=== PATIENT | female | born 1955 | race Caucasian/White ===

== ENCOUNTER → 2019-07-23 17:21 | Outpatient (CLI) | payer MEDICARE, SELFPAY ==
[2019-07-23 19:08] LABS: Amphetamine/Metha Screen,Urine Negative ng/mL (<1000); Barbiturates Screen,Urine Negative ng/mL (<200); Benzodiazepines Screen,Urine Negative ng/mL (<200); Cannabinoid Screen,Urine Negative ng/mL (<50); Cocaine Screen,Urine Negative ng/mL (<300); Methadone Screen,Urine Negative ng/mL (<300); Opiate Screen,Urine Negative ng/mL (<300); Phencyclidine Screen,Urine Negative ng/mL (<25)
[2019-07-30 19:36] LABS: Alprazolam Negative (Cutoff=100); Benzodiazepines Negative ng/mL (Cutoff=100); Clonazepam Negative (Cutoff=100); Flurazepam Negative (Cutoff=100); Lorazepam Negative (Cutoff=100); Midazolam Negative (Cutoff=100); Temazepam Negative (Cutoff=100); Triazolam Negative (Cutoff=100)
[2019-07-31 16:57] LABS: Opiates Negative (Cutoff=100)
== END ==
PROVIDERS: Visit Provider Emergency Medicine
DX: Z79.899 Other long term (current) drug therapy (principal)
CPT/HCPCS: 80305; 80346; 80361; 80365; G0480

== ENCOUNTER → 2019-08-20 17:02 | Outpatient (CLI) | payer MEDICARE, SELFPAY ==
[2019-08-20 21:38] LABS: Amphetamine/Metha Screen,Urine Negative ng/ml (<1000)
[2019-08-20 21:39] LABS: Barbiturates Screen,Urine Negative ng/ml (<200); Benzodiazepines Screen,Urine Negative ng/ml (<200)
[2019-08-20 21:40] LABS: Cannabinoid Screen,Urine Negative ng/ml (<50)
[2019-08-20 21:41] LABS: Cocaine Screen,Urine Negative ng/ml (<300); Methadone Screen,Urine Negative ng/ml (<300)
[2019-08-20 21:42] LABS: Opiate Screen,Urine Negative ng/ml (<300)
[2019-08-20 21:43] LABS: Phencyclidine Screen,Urine Negative ng/ml (<25)
[2019-08-28 10:28] LABS: Alprazolam Negative (Cutoff=100); Benzodiazepines Negative ng/mL (Cutoff=100); Clonazepam Negative (Cutoff=100); Flurazepam Negative (Cutoff=100); Lorazepam Negative (Cutoff=100); Midazolam Negative (Cutoff=100); Temazepam Negative (Cutoff=100); Triazolam Negative (Cutoff=100)
[2019-08-28 12:33] LABS: Opiates Negative (Cutoff=100)
== END ==
PROVIDERS: Visit Provider Emergency Medicine
DX: Z79.899 Other long term (current) drug therapy (principal)
CPT/HCPCS: 80305; 80346; 80361; 80365; G0480

== ENCOUNTER → 2019-11-03 14:15 | Outpatient (POV) | payer MEDICARE, SELFPAY ==
[2019-11-03 14:26] VITALS: BMI 25.3
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
== END ==
PROVIDERS: Visit Provider Clinical Nurse Specialist Family Health
DX: R10.2 Pelvic and perineal pain (principal); M79.606 Pain in leg, unspecified; Z79.899 Other long term (current) drug therapy; Z88.1 Allergy status to other antibiotic agents
CPT/HCPCS: 99202

== ENCOUNTER → 2019-11-27 17:22 | Outpatient (CLI) | payer MEDICARE, SELFPAY ==
[2019-11-27 17:52] LABS: Basophils # 0.1 K/mm3 (0-0.2); Basophils % 0.5 % (0.1-2.0); Eosinophils # 0.1 K/mm3 (0.0-0.4); Eosinophils % 0.8 % (0.1-12.0); Hematocrit 41.1 % (37.0-47.0); Hemoglobin 14.1 g/dL (12.2-16.2); Lymphocytes # 3.6 K/mm3 (0.7-4.5); Lymphocytes % 23.6 % (10-50); Mean Corpuscular HGB Conc 34.2 g/dL (31.8-35.4); Mean Corpuscular Hemoglobin 35.6 pg (27.0-31.2); Mean Platelet Volume 9.5 fl (7.4-10.4); Monocytes # 0.8 K/mm3 (0.1-1.0); Neutrophils # 10.6 K/mm3 (1.8-7.8); Neutrophils % 70.2 % (37.0-80.0); Platelet Count 459 K/mm3 (142-424); Red Blood Count 3.95 M/mm3 (4.20-5.40); Red Cell Distribution Width 13.6 % (11.5-17.5); White Blood Count 15.2 K/mm3 (4.8-10.8)
[2019-11-27 17:53] LABS: MANUAL DIFFERENTIAL MANUAL DIFFERENTIAL (MANUAL DIFF)
[2019-11-27 18:16] LABS: Alanine Aminotransferase 34 U/L (12-78); Albumin Level 4.6 g/dl (3.5-5.0); Albumin/Globulin Ratio 1.6 (1.1-1.8); Alkaline Phosphatase 134 U/L (38-126); Anion Gap 15.9 mEq/L (5-15); Aspartate Amino Transferase 48 U/L (14-36); Bilirubin,Total 0.3 mg/dl (0.2-1.3); Blood Urea Nitrogen 7 mg/dl (7-17); Calcium 9.9 mg/dl (8.4-10.2); Carbon Dioxide 22 mmol/L (22.0-30.0); Chloride 94 mmol/L (98-107); Estimated Glomerular Filt Rate 100 ml/min (>60); GFR (African American) 121 ML/MIN (>60); Globulin 2.9 g/dL (1.3-3.2); Glucose 83 mg/dl (74-100); Potassium 3.9 mmoL/L (3.5-5.1); Sodium 128 mmol/L (136-145); Total Protein,Serum 7.5 g/dl (6.3-8.2)
[2019-11-27 18:43] LABS: Anisocytosis 1+; Eosinophils % 2 % (0-3); Lymphocytes % 26 % (10-50); Macrocytosis 1+; Monocytes % 6 % (2-9); Neutrophils % 66 % (42-76); Platelet Estimate Slight Increase; Total Cells Counted 100
== END ==
PROVIDERS: Visit Provider Physician Assistant
DX: R19.7 Diarrhea, unspecified (principal)
CPT/HCPCS: 80053; 85007; 85025

== ENCOUNTER → 2019-12-15 17:13 | Outpatient (CLI) | payer MEDICARE, SELFPAY ==
[2019-12-15 17:38] LABS: Chloride 95 mmol/L (98-107); Sodium 129 mmol/L (136-145)
[2019-12-15 17:39] LABS: Potassium 4.8 mmoL/L (3.5-5.1)
[2019-12-15 17:42] LABS: Anion Gap 13.8 mEq/L (5-15); Blood Urea Nitrogen 8 mg/dl (7-17); Calcium 9.7 mg/dl (8.4-10.2); Carbon Dioxide 25 mmol/L (22.0-30.0); Estimated Glomerular Filt Rate 124 ml/min (>60); GFR (African American) 150 ML/MIN (>60); Glucose 97 mg/dl (74-100)
== END ==
PROVIDERS: Visit Provider Emergency Medicine
DX: I10 Essential (primary) hypertension (principal)
CPT/HCPCS: 80048

== ENCOUNTER → 2020-08-25 14:40 | Outpatient (CLI) | payer MEDICARE, SELFPAY ==
[2020-08-25 18:09] LABS: Amphetamine/Metha Screen,Urine Negative ng/ml (<1000)
[2020-08-25 18:10] LABS: Barbiturates Screen,Urine Negative ng/ml (<200); Benzodiazepines Screen,Urine Negative ng/ml (<200)
[2020-08-25 18:11] LABS: Cannabinoid Screen,Urine Negative ng/ml (<50)
[2020-08-25 18:12] LABS: Cocaine Screen,Urine Negative ng/ml (<300); Methadone Screen,Urine Negative ng/ml (<300)
[2020-08-25 18:13] LABS: Opiate Screen,Urine Positive ng/ml (<300)
[2020-08-25 18:14] LABS: Phencyclidine Screen,Urine Negative ng/ml (<25)
== END ==
PROVIDERS: Visit Provider Emergency Medicine
DX: Z79.899 Other long term (current) drug therapy (principal)
CPT/HCPCS: 80305

== ENCOUNTER → 2020-10-25 14:26 | Outpatient (CLI) | payer MEDICARE, SELFPAY ==
[2020-10-25 16:27] LABS: Amphetamine/Metha Screen,Urine Negative ng/ml (<1000); Benzodiazepines Screen,Urine Negative ng/ml (<200)
[2020-10-25 16:28] LABS: Barbiturates Screen,Urine Negative ng/ml (<200)
[2020-10-25 16:29] LABS: Cannabinoid Screen,Urine Negative ng/ml (<50); Methadone Screen,Urine Negative ng/ml (<300)
[2020-10-25 16:30] LABS: Cocaine Screen,Urine Negative ng/ml (<300)
[2020-10-25 16:31] LABS: Opiate Screen,Urine Negative ng/ml (<300)
[2020-10-25 16:32] LABS: Phencyclidine Screen,Urine Negative ng/ml (<25)
== END ==
PROVIDERS: Visit Provider Emergency Medicine
DX: Z79.899 Other long term (current) drug therapy (principal)
CPT/HCPCS: 80305

== ENCOUNTER → 2021-03-25 17:05 | Outpatient (CLI) | payer MEDICARE, SELFPAY ==
[2021-03-25 19:41] LABS: Amphetamine/Metha Screen,Urine Negative ng/ml (<1000); Barbiturates Screen,Urine Negative ng/ml (<200)
[2021-03-25 19:42] LABS: Benzodiazepines Screen,Urine Negative ng/ml (<200)
[2021-03-25 19:43] LABS: Cannabinoid Screen,Urine Negative ng/ml (<50)
[2021-03-25 19:44] LABS: Cocaine Screen,Urine Negative ng/ml (<300)
[2021-03-25 19:45] LABS: Methadone Screen,Urine Negative ng/ml (<300)
[2021-03-25 19:47] LABS: Opiate Screen,Urine Negative ng/ml (<300); Phencyclidine Screen,Urine Negative ng/ml (<25)
== END ==
PROVIDERS: Visit Provider Emergency Medicine
DX: Z79.899 Other long term (current) drug therapy (principal)
CPT/HCPCS: 80305

== ENCOUNTER → 2021-04-06 07:50 | Outpatient (CLI) | payer MEDICARE, SELFPAY | PROVIDERS: Visit Provider Nurse Practitioner Family | DX: G93.40 Encephalopathy, unspecified (principal); I10 Essential (primary) hypertension | CPT/HCPCS: 36415; 80053; 82607; 82746; 84443; 85025 ==

== ENCOUNTER → 2021-04-06 08:21 | Outpatient (CLI) | payer MEDICARE, SELFPAY ==
--- NOTE | 2021-04-06 08:21 | MR_ITS ---
PROCEDURE INFORMATION: Exam: MR Head Without and With Contrast Exam date and time: 04/06/2021 8:21 AM Age: 65 years old Clinical indication: Pain; Headache; Additional info: Memory loss, HX headaches, bone cancer. Memory loss, HX headaches, bone cancer. 14ml prohance. Unable to finish coronal post contrast, only some images are there for this series. TECHNIQUE: Imaging protocol: MR of the head without and with intravenous contrast. Contrast material: PROHANCE; Contrast volume: 14 ml; Contrast route: IV; COMPARISON: No relevant prior studies available. FINDINGS: Brain: The coronal postcontrast images are incomplete, limiting this evaluation. No abnormally enhancing intracranial mass is identified. No restricted diffusion within the brain to suggest an acute infarct. Encephalomalacia/gliosis involving the bilateral parietal lobes superiorly, consistent with old infarcts. Additional gliosis is seen within the posterosuperior frontal lobes bilaterally, as well as the left occipital cortex, likely representing chronic ischemic change. There are additional periventricular foci of FLAIR hyperintensity within the cerebral white matter. There is no mass effect or restricted diffusion associated with these foci. In a patient this age, this likely represents chronic small vessel ischemic disease. A few tiny chronic cerebellar infarcts are seen bilaterally. Cerebral ventricles: No ventriculomegaly. Bones/joints: Nonspecific heterogeneous signal intensity of the skull. Degenerative changes are visualized within the upper cervical spine. Moderate spinal canal stenosis is noted at C3-C4. Evaluation of the cervical spine is limited. Paranasal sinuses: An air-fluid level is visualized within the right maxillary sinus. Mucosal thickening/effusion within the left frontal sinus. Mastoid air cells: No mastoid effusion. Internal auditory canals: An anterior inferior cerebellar artery loop is seen within the right internal auditory canal. Orbital cavity: Bilateral orbital lens implants. Soft tissues: Unremarkable, as visualized. Nasopharynx: Small amount of fluid within the posterior nasopharynx. IMPRESSION: 1. No acute infarct. 2. Encephalomalacia/gliosis involving the bilateral parietal lobes superiorly, consistent with old infarcts. Additional gliosis is seen within the posterosuperior frontal lobes bilaterally, as well as the left occipital cortex, likely representing chronic ischemic change. 3. Mild additional white matter disease, likely representing chronic small vessel ischemic disease. 4. A few tiny chronic cerebellar infarcts are seen bilaterally. 5. Paranasal sinus disease. 6. Small amount of fluid within the posterior nasopharynx. 7. Degenerative changes are visualized within the upper cervical spine. Moderate spinal canal stenosis is noted at C3-C4. 8. Nonspecific heterogeneous signal intensity of the skull. In a patient with a history of bone cancer, a follow-up bone scan is suggested.
[2021-04-06 08:42] LABS: Basophils # 0.1 K/mm3 (0-0.2); Basophils % 0.5 % (0.1-2.0); Eosinophils # 0.3 K/mm3 (0.0-0.4); Eosinophils % 2.8 % (0.1-12.0); Hemoglobin 12.9 g/dL (12.2-16.2); Lymphocytes # 3.4 K/mm3 (0.7-4.5); Lymphocytes % 33.4 % (10-50); Mean Corpuscular Hemoglobin 35.8 pg (27.0-31.2); Mean Corpuscular Volume 108.6 fl (81-99); Mean Platelet Volume 8.2 fl (7.4-10.4); Monocytes # 0.5 K/mm3 (0.1-1.0); Monocytes % 5.2 % (1.7-9.3); Neutrophils % 58.1 % (37.0-80.0); Platelet Count 377 K/mm3 (142-424); Red Blood Count 3.59 M/mm3 (4.20-5.40); Red Cell Distribution Width 13.5 % (11.5-17.5); White Blood Count 10.3 K/mm3 (4.8-10.8)
[2021-04-06 09:05] LABS: Alanine Aminotransferase 16 U/L (12-78); Albumin Level 4.4 g/dl (3.5-5.0); Albumin/Globulin Ratio 1.6 (1.1-1.8); Alkaline Phosphatase 85 U/L (38-126); Anion Gap 9.6 mEq/L (5-15); Aspartate Amino Transferase 34 U/L (14-36); Bilirubin,Total 0.3 mg/dl (0.2-1.3); Blood Urea Nitrogen 8 mg/dl (7-17); Calcium 9.9 mg/dl (8.4-10.2); Carbon Dioxide 31 mmol/L (22.0-30.0); Chloride 97 mmol/L (98-107); Estimated Glomerular Filt Rate 123 ml/min (>60); GFR (African American) 149 ML/MIN (>60); Globulin 2.7 g/dL (1.3-3.2); Glucose 93 mg/dl (74-100); Potassium 4.6 mmoL/L (3.5-5.1); Sodium 133 mmol/L (136-145); Total Protein,Serum 7.1 g/dl (6.3-8.2)
[2021-04-06 09:37] LABS: Thyroid Stimulating Hormone 1.58 uIU/mL (0.465-4.68)
[2021-04-06 11:36] LABS: Folate 5.38 ng/mL; Vitamin B12 > 1000 pg/mL (239-931)
== END ==
PROVIDERS: PCP Emergency Medicine; Visit Provider Nurse Practitioner Family
DX: G93.40 Encephalopathy, unspecified (principal); R41.3 Other amnesia; Z85.830 Personal history of malignant neoplasm of bone
CPT/HCPCS: 36415; 70553; 80053; 82607; 82746; 84443; 85025; 95816; A9576

== ENCOUNTER → 2021-05-03 08:23 | Outpatient (CLI) | payer MEDICARE, SELFPAY ==
--- NOTE | 2021-05-03 08:24 | CA_ITS ---
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 Indications: eval for carotid stenosis, smoker, hx-TIA/CVA Risk Factors Smoking Doppler Spectral Velocity Analysis ECA (R) 189.30/21.40 cm/s ECA (L) 62.20/0.70 cm/s dICA (R) 94.10/31.00 cm/s dICA (L) 95.70/27.80 cm/s Loan (R) 79.10/23.50 cm/s Loan (L) 82.80/23.80 cm/s pICA (R) 85.50/22.50 cm/s pICA (L) 70.90/19.90 cm/s dCCA (R) 130.50/6.40 cm/s dCCA (L) 78.80/17.90 cm/s pCCA (R) 101.60/25.70 cm/s pCCA (L) 86.10/17.90 cm/s Vert (R) 66.30/19.20 cm/s Vert (L) 43.70/9.90 cm/s ICA/CCA 0.93 ICA/CCA 1.11 Findings 2d imaging displays extreme tortuosity of the Right carotid arteries. No hemodynamically significant stenosis of bilateral ICA stensis present. Duplex evaluation demonstrates antegrade flow of the bilateral Vertebral Arteries. Duplex evaluation demonstrates stenosis of the right proximal internal carotid artery in the range of 20-49% with PSV <140 cm/sec, EDV <100 cm/sec, and IC/CC Ratio <4.0. Duplex evaluation demonstrates stenosis of the left proximal internal carotid artery in the range of 20-49% with PSV <140 cm/sec, EDV <100 cm/sec, and IC/CC Ratio <4.0. Conclusion 2d imaging displays extreme tortuosity of the Right carotid arteries. No hemodynamically significant stenosis of bilateral ICA stensis present. Duplex evaluation demonstrates antegrade flow of the bilateral Vertebral Arteries. Duplex evaluation demonstrates stenosis of the right proximal internal carotid artery in the range of 20-49% with PSV <140 cm/sec, EDV <100 cm/sec, and IC/CC Ratio <4.0. Duplex evaluation demonstrates stenosis of the left proximal internal carotid artery in the range of 20-49% with PSV <140 cm/sec, EDV <100 cm/sec, and IC/CC Ratio <4.0. Electronically signed by : Lg Schulz MD 05/03/2021 18:23:50
--- NOTE | 2021-05-03 08:24 | CA_ITS ---
APPROVED REPORT EXAM: Comprehensive 2D, Doppler, and color-flow Echocardiogram Infrastructure Administrator: Alis Gaxiola, RT(R) Ht: 5 ft 6 in Wt: 146lbs BSA: 1.75 BP: 132/78 mmHg Indications: CVA, smoker, HTN, hx of bone cancer, TIA's 2D Dimensions LVOT 2.01 cm (M/F) 1.5-2.5 LA Volume 48.00 mL LA Volume Index 27.42 mL/m2 (M/F) 16-34 M-Mode Dimensions RVDd 2.46 cm (0.9-2.6) LA Diam 3.24 cm (1.9-4.0) LVDd 5.01 cm (3.5-5.7) Ao Diam 3.05 cm (2.0-3.7) LVDs 3.83 cm (3.5-5.7) IVSd 0.75 cm (0.6-1.1) PWd 0.93 cm (0.6-1.1) EF (Teich) 46.90% FS 23.60% EDV (Teich) 118.80 mL ESV (Teich) 63.10 mL LV Diastology E Decel Time 233.00 (160-240 msec) E/A Ratio 0.6 MED E' 6.00 (< 7 cm/sec) E'/MED E' Ratio 11.80 (>14) LAT E' 7.30 (<10 cm/sec) E/LAT E' Ratio 9.70 (>14) Mitral Valve MV E Max Jesús. 71.00 (40-130 cm/s) MV A Velocity 120.00 (40-130 cm/s) E/A Ratio 0.59 MV Decel. Time 233.00 (160-240 ms) MV PHT 68.00 ms Left Ventricle Left atrium is mildly enlarged, left ventricle is normal size, mild concentric left ventricular hypertrophy, visually estimated ejection fraction 55% with no regional wall motion abnormality, grade 1 diastolic dysfunction seen without tissue Doppler evidence of raise left atrial pressure. Right Ventricle Right atrium and right ventricle are normal size and contractility. Aortic Valve Aortic valve is minimally thickened and fibrosed, there is no aortic stenosis or aortic insufficiency. Mitral Valve Mitral valve is grossly normal, there is trace mitral regurgitation. Tricuspid Valve Tricuspid valve is grossly normal, there is trace tricuspid regurgitation. Tricuspid rotation jet velocity is inadequate for calculation of the right ventricular systolic pressure. Pulmonic Valve Pulmonic valve is poorly visualized. Great Vessels Aortic root is normal size. Inferior vena cava is not well visualized. Pericardium No significant pericardial effusion noted. Conclusion 1. Mildly enlarged left atrium, normal left ventricular size, mild concentric left ventricular hypertrophy, visually estimated ejection fraction 55% with no regional wall motion abnormality, grade 1 diastolic dysfunction seen without tissue Doppler evidence of raise left atrial pressure. 2. Trace mitral and tricuspid regurgitation. 3. No significant pericardial effusion noted. 4. Inferior vena cava is not well visualized. Electronically signed by : Morgan Gibson MD 05/03/2021 21:48:57
== END ==
PROVIDERS: PCP Emergency Medicine; Visit Provider Nurse Practitioner Family
DX: G93.40 Encephalopathy, unspecified (principal); I10 Essential (primary) hypertension; R90.89 Other abnormal findings on diagnostic imaging of central nervous system; Z86.73 Personal history of transient ischemic attack (TIA), and cerebral infarction without residual deficits; Z72.0 Tobacco use
CPT/HCPCS: 93306; 93880

== ENCOUNTER → 2021-05-12 09:07 | Outpatient (CLI) | payer MEDICARE, SELFPAY ==
--- NOTE | 2021-05-12 09:10 | NM_ITS ---
PROCEDURE: NM BONE SCAN WHOLE BODY CLINICAL INDICATION: ABN MRI, CURRENT SMOKER COMPARISON: CR CXR1 CHEST-PORTABLE from 06/23/2015 MR MR HEAD/BRAIN WO/W CON from 04/06/2021 FINDINGS: Dose: 244 mCi technetium MDP Skull has an unremarkable appearance. Focal increased activity in 4th rib anteriorly and in the right aspect the T5 vertebral body. There is diffuse increased activity at the L4 and region lumbar, bilateral SI joints and in the right ankle and proximal foot area. Diffuse increased activity is also present in the distal 1/2 of the left femur. Increased activity also noted in the mid lower cervical spine. IMPRESSION: Abnormal whole body bone scan with multiple areas of focal and diffuse increased activity as described above. These findings are nonspecific and should be correlated with patient's history and radiographs. Posttraumatic and/or arthritic changes could cause these findings. Has the patient had prior trauma to the left femur and right ankle and foot? One cannot exclude the possibility of metastatic disease. Posttraumatic changes/arthritic changes are also consideration. Radiographs of the right ribs, thoracic spine, lumbar spine to include the SI joints, left femur, and right ankle and foot suggested. Dictated by: Lg Schulz MD 05/21/2021 06:59 Lg Schulz MD in [place] 05/21/2021 06:59
== END ==
PROVIDERS: PCP Emergency Medicine; Visit Provider Internal Medicine Medical Oncology
DX: R51.9 Headache, unspecified (principal); R93.89 Abnormal findings on diagnostic imaging of other specified body structures
CPT/HCPCS: 78306; A9503

== ENCOUNTER → 2021-05-24 14:16 | Outpatient (CLI) | payer MEDICARE, SELFPAY ==
[2021-05-24 14:52] LABS: Amphetamine/Metha Screen,Urine Negative ng/ml (<1000)
[2021-05-24 14:53] LABS: Barbiturates Screen,Urine Negative ng/ml (<200); Benzodiazepines Screen,Urine Negative ng/ml (<200)
[2021-05-24 14:54] LABS: Cocaine Screen,Urine Negative ng/ml (<300)
[2021-05-24 14:55] LABS: Methadone Screen,Urine Negative ng/ml (<300)
[2021-05-24 14:56] LABS: Opiate Screen,Urine Negative ng/ml (<300); Phencyclidine Screen,Urine Negative ng/ml (<25)
[2021-05-24 15:06] LABS: Cannabinoid Screen,Urine Negative ng/ml (<50)
== END ==
PROVIDERS: Visit Provider Emergency Medicine
DX: Z79.899 Other long term (current) drug therapy (principal)
CPT/HCPCS: 80305

== ENCOUNTER 2021-06-24 13:53 | Inpatient (IN) | payer MEDICARE, SELFPAY ==
[2021-06-24] VITALS (16 sets, daily range): BP systolic 162–220; BP diastolic 92–122; PULSE 81–97; RESP 18; TEMP 36.5–37.2; O2SAT 95–99; BMI 25.0; BMI 22.8
--- NOTE | 2021-06-24 13:57 | CT_ITS ---
PROCEDURE INFORMATION: Exam: CT Head Without Contrast Exam date and time: 06/24/2021 1:57 PM Age: 65 years old Clinical indication: Other: Tremors; Patient HX: Stroke protocol TECHNIQUE: Imaging protocol: Computed tomography of the head without contrast. Radiation optimization: All CT scans at this facility use at least one of these dose optimization techniques: automated exposure control; mA and/or kV adjustment per patient size (includes targeted exams where dose is matched to clinical indication); or iterative reconstruction. Other technique: STROKE PROTOCOL was implemented. COMPARISON: MR HEAD/BRAIN WO/W CON 04/06/2021 8:54 AM FINDINGS: Brain: Hypodensity is seen in the periventricular cerebral white matter. This change is nonspecific but is most likely secondary to chronic ischemia within microvascular distributions. Lynn white matter distinction is maintained throughout the brain. No radiographic evidence of intracranial hemorrhage. Encephalomalacia along the left greater than right parietal regions. Previously noted. Cerebral ventricles: Ventricles are enlarged on the basis of mild diffuse cerebral volume loss. Paranasal sinuses: Dense opacification right maxillary sinus. Chronic. Mastoid air cells: Visualized mastoid air cells are well aerated. Bones/joints: Unremarkable. No acute fracture. Soft tissues: Unremarkable. Other findings: No intra or extra-axial masses, lesions or collections. IMPRESSION: 1. No radiographic evidence of acute intracranial pathology. 2. Encephalomalacia along the left greater than right parietal regions. Previously noted. ASSESSMENT: ASPECTS ([place] Stroke Program Early CT Score) is 10.
--- NOTE | 2021-06-24 14:03 | CT_ITS ---
PROCEDURE INFORMATION: Exam: CT Abdomen And Pelvis With Contrast Exam date and time: 06/24/2021 2:03 PM Age: 65 years old Clinical indication: Abdominal pain; Generalized; Prior surgery; Surgery type: Pelvic, femur TECHNIQUE: Imaging protocol: Computed tomography of the abdomen and pelvis with contrast. Radiation optimization: All CT scans at this facility use at least one of these dose optimization techniques: automated exposure control; mA and/or kV adjustment per patient size (includes targeted exams where dose is matched to clinical indication); or iterative reconstruction. Contrast material: ISOVUE; Contrast volume: 75 ml; Contrast route: IV; COMPARISON: NM BONE SCAN WHOLE BODY 05/12/2021 12:41 PM FINDINGS: Lungs: There is subpleural atelectasis of the dependent portions of the lungs. Lung bases are clear. Diaphragm: A small hiatal hernia is present. Liver: There is enlargement of the liver, measuring 17.4 cm. There is a diffuse decrease in hepatic parenchymal density, consistent with fatty infiltration. Coarse calcification in the right hepatic lobe on image 25 series 5 is of no concern. Liver lesions as follows: Lesion 1: -Location: Right hepatic lobe (image 23 series 5). -Morphology: Well-defined and ovoid in shape. -Size: 2.6 cm x 2.4 cm. -Hounsfield units: 0.4 (fluid density) -Contrast enhancement: None. -COMMENTS: THIS IS MOST COMPATIBLE WITH A SIMPLE HEPATIC CYST. NO FOLLOW-UP IS WARRANTED. The liver is otherwise unremarkable. Gallbladder and bile ducts: Prior cholecystectomy. There is no evidence of biliary ductal dilation. Pancreas: Normal. No ductal dilation. Spleen: Normal. No splenomegaly. Adrenal glands: Normal. No mass. Kidneys and ureters: Scattered areas of right renal cortical scarring versus lobulation. The right kidney is otherwise unremarkable. The right ureter is normal. No filling defects within the right pelvicaliceal system or right ureter. There is a simple cyst in the left kidney measuring 9.5 mm. The left kidney is otherwise unremarkable. No filling defects within the left pelvicaliceal system or visualized segments of the left ureter. Distal segments of the left ureter are not confidently contrast opacified on the delayed/excretory images. Stomach and bowel: No bowel wall thickening, obstruction, or other acute pathology. Diffuse colonic diverticulosis is present. There is mildly excessive colonic stool content. Mole bile cecum which projects in the left upper quadrant. Appendix: Appendix is not confidently visualized in this examination. Intraperitoneal space: No free fluid, fluid collections, or pneumoperitoneum. Retroperitoneal space: No acute abnormalities in the retroperitoneal space. Vasculature: The vasculature demonstrates diffuse moderate atherosclerotic calcification. Lymph nodes: No retroperitoneal, pelvic, or mesenteric adenopathy. Urinary bladder: Unremarkable as visualized. Reproductive: There has been a hysterectomy. 3.9 cm x 3.4 cm simple cyst in the left adnexa. Further evaluation with prompt non-emergent ultrasound is recommended to characterize. (Reference: [facility]ah) Bones/joints: Prior left sacroiliac joint fixation without discrete complications. Prior left superior pubic ramus fixation without discrete complications. Prior left proximal femoral fixation hardware without discrete complications. Old/healed fractures to the left superior and inferior pubic rami. Old/healed fracture to the left iliac bone. No acute skeletal pathology. Moderate multilevel degenerative changes of the spine, as manifested by multilevel anterior osteophytes and multilevel decrease in in
--- NOTE | 2021-06-24 14:04 | CT_ITS ---
Examination: CT angiogram of the neck. 06/24/2021 2:04 PM Indication: Patient HX: Stroke like symptoms, tremors Technique: Imaging protocol: Computed tomography angiography of the neck with contrast. 3D rendering (Not supervised by radiologist): MIP and/or 3D reconstructed images were created by the technologist. Radiation optimization: All CT scans at this facility use at least one of these dose optimization techniques: automated exposure control; mA and/or kV adjustment per patient size (includes targeted exams where dose is matched to clinical indication); or iterative reconstruction. Contrast material: ISO 370; Contrast volume: 75 ml; Contrast route: INTRAVENOUS (IV). Degree of narrowing estimated utilizing NASCET criteria. Findings: The axial source images were carefully reviewed and interpreted in conjunction with the projected MIP images. Regarding the vascular structures: Transverse aorta: Minimal calcification innominate artery: Normal Right common carotid artery, bifurcation, and internal carotid artery: Normal Left common carotid artery, bifurcation, and internal carotid arteries: Normal Vertebral arteries: Dominant on the right basilar artery: Patent Regarding the soft tissues: Unremarkable Impression: Unremarkable CT angiogram of the neck
--- NOTE | 2021-06-24 14:04 | CT_ITS ---
Examination: CT angiogram of the brain. 06/24/2021 2:04 PM Indication: Patient HX: Stroke like symptoms Technique: Imaging protocol: Computed tomography angiography of the head with contrast. Exam focused on the arteries. 3D rendering (Not supervised by radiologist): MIP and/or 3D reconstructed images were created by the technologist. Radiation optimization: All CT scans at this facility use at least one of these dose optimization techniques: automated exposure control; mA and/or kV adjustment per patient size (includes targeted exams where dose is matched to clinical indication); or iterative reconstruction. Contrast material: ISO 370; Contrast volume: 75 ml; Contrast route: INTRAVENOUS (IV) Findings: The axial source images were carefully reviewed and interpreted in conjunction with the projected images. Right petrous carotid, cavernous carotid, supraclinoid carotid: Normal Right M1 and M2 segments: Normal Right A1 and A2 segments: Normal Left petrous and cavernous carotids and supraclinoid carotid: Normal Left M1 and M2 segments: Normal Left A1 and A2 segments: Normal Right and left posterior inferior cerebellar arteries: Normal Basilar artery: Normal Superior cerebellar arteries and the left and right P1 and P2 segments: Normal Impression: Normal CT angiogram of the brain.
[2021-06-24 14:41] LABS: Basophils # 0.1 K/mm3 (0-0.2); Basophils % 0.7 % (0.1-2.0); Eosinophils # 0.2 K/mm3 (0.0-0.4); Eosinophils % 1.8 % (0.1-12.0); Hematocrit 43.1 % (37.0-47.0); Lymphocytes # 1.3 K/mm3 (0.7-4.5); Lymphocytes % 11.2 % (10-50); Mean Corpuscular HGB Conc 32.5 g/dL (31.8-35.4); Mean Corpuscular Hemoglobin 34.4 pg (27.0-31.2); Mean Corpuscular Volume 105.9 fl (81-99); Monocytes # 0.6 K/mm3 (0.1-1.0); Monocytes % 5.1 % (1.7-9.3); Neutrophils # 9.5 K/mm3 (1.8-7.8); Neutrophils % 81.2 % (37.0-80.0); Platelet Count 576 K/mm3 (142-424); Red Blood Count 4.07 M/mm3 (4.20-5.40); Red Cell Distribution Width 13.1 % (11.5-17.5); White Blood Count 11.7 K/mm3 (4.8-10.8)
[2021-06-24 14:45] LABS: Chloride 87 mmol/L (98-107); Sodium 125 mmol/L (136-145)
[2021-06-24 14:48] LABS: Alanine Aminotransferase 22 U/L (12-78); Albumin Level 5.4 g/dl (3.5-5.0); Albumin/Globulin Ratio 1.7 (1.1-1.8); Alkaline Phosphatase 79 U/L (38-126); Aspartate Amino Transferase 45 U/L (14-36); Bilirubin,Total 0.8 mg/dl (0.2-1.3); Blood Urea Nitrogen 4 mg/dl (7-17); Calcium 10.4 mg/dl (8.4-10.2); Carbon Dioxide 24 mmol/L (22.0-30.0); Creatinine Clearance Estimated 61 mL/min (50-200); Estimated Glomerular Filt Rate 160 ml/min (>60); GFR (African American) 193 ML/MIN (>60); Globulin 3.2 g/dL (1.3-3.2); Glucose 104 mg/dl (74-100); Salicylate 1.3 mg/dL (2.0-20.0); Total Protein,Serum 8.6 g/dl (6.3-8.2)
[2021-06-24 14:49] LABS: Magnesium 1.4 mg/dl (1.6-2.3); Phosphorous 3.3 mg/dl (2.5-4.5)
[2021-06-24 14:52] LABS: Acetaminophen < 10 ug/ml (10-30)
[2021-06-24 15:19] LABS: Thyroid Stimulating Hormone 1.34 uIU/mL (0.465-4.68)
[2021-06-24 15:54] LABS: Microscopic, Urine URINE MICROSCOPIC (MICROSCOPIC)
[2021-06-24 15:55] LABS: Appearance,Urine CLEAR (Clear); Bilirubin,Urine Negative (Negative); Blood, Urine Negative (Negative); Color,Urine YELLOW (Yellow); Glucose,Urine (UA) Negative (Negative); Ketones,Urine Negative (Negative); Leukocyte Esterase,Urine Negative (Negative); Nitrate,Urine Negative (Negative); Protein,Urine Negative (Negative); Specific Gravity, Urine <= 1.005 (1.005-1.030); Urobilinogen,Urine 0.2 EU/dl (0.2)
--- NOTE | 2021-06-24 17:26 | HMH.EDAMS ---
ED Disposition Clinical Impression: Altered mental status, Hyponatremia Disposition: Admitted As Inpatient Condition on Discharge: Fair - Critical Care Critical Care Time: Yes Attestation: On 06/24/21, the high probability of a clinically significant, sudden or life threatening deterioration of the following system(s) required my full and direct attention, intervention and personal management. The time I documented below is in addition to time spent performing reported procedures but includes the following listed in this critical care notation. Total Critical Care Time: 35 Vital system(s) involved:: Circulatory Failure, Central Nervous System, Metabolic Failure My critical care processes included: Assessment & monitoring of V/S, Initial and Re-exams, Data Review/Interpretation, Coordinating Care, Medication Orders and management, Documentation Medical Decision Making - Medical Records Medical records reviewed: Yes: I reviewed the patient's medical records. - Theo Inquiry Pt receiving controlled substance: No Theo was queried for this patient: No Vital Signs: 06/24/21 13:56 06/24/21 14:44 06/24/21 15:00 Temperature 97.7 F Temperature Source Oral Pulse Rate 94 H 89 Pulse Rate [Left Radial] 97 H Respiratory Rate 18 Blood Pressure 185/109 H 186/106 H Blood Pressure [Right Arm] 208/113 H Blood Pressure Mean 143 144 Blood Pressure Mean [Right Arm] 144 Blood Pressure Source [Right Arm] Automatic Cuff Blood Pressure Position [Right Arm] Sitting 02 Sat by Pulse Oximetry 99 96 96 Oxygen Delivery Method Room Air 06/24/21 15:40 06/24/21 16:00 06/24/21 16:31 Temperature Temperature Source Pulse Rate 93 H 81 92 H Pulse Rate [Left Radial] Respiratory Rate Blood Pressure 213/113 H 184/96 H 220/114 H Blood Pressure [Right Arm] Blood Pressure Mean 139 125 149 Blood Pressure Mean [Right Arm] Blood Pressure Source [Right Arm] Blood Pressure Position [Right Arm] 02 Sat by Pulse Oximetry 98 95 98 Oxygen Delivery Method 06/24/21 17:00 06/24/21 17:13 Temperature Temperature Source Pulse Rate 87 87 Pulse Rate [Left Radial] Respiratory Rate Blood Pressure 208/114 H 189/102 H Blood Pressure [Right Arm] Blood Pressure Mean 145 148 Blood Pressure Mean [Right Arm] Blood Pressure Source [Right Arm] Blood Pressure Position [Right Arm] 02 Sat by Pulse Oximetry 98 98 Oxygen Delivery Method - Lab Data Lab results reviewed: Yes: I reviewed the patient's lab results. Lab Results 06/24/21 14:30: WBC 11.7 H, RBC 4.07 L, Hgb 14.0, Hct 43.1, MCV 105.9 H, MCH 34.4 H, MCHC 32.5, RDW 13.1, Plt Count 576 H, MPV 8.0, Neut % (Auto) 81.2 H, Lymph % (Auto) 11.2, [place] % (Auto) 5.1, Eos % (Auto) 1.8, Baso % (Auto) 0.7, Neut # (Auto) 9.5 H, Lymph # (Auto) 1.3, [place] # (Auto) 0.6, Eos # (Auto) 0.2, Baso # (Auto) 0.1 06/24/21 14:30: Sodium 125 L, Potassium 4.0, Chloride 87 L, Carbon Dioxide 24, Anion Gap 18.0 H, BUN 4 L, Creatinine 0.40 L, Estimated Creat Clear 61, Estimated GFR 160, Est GFR ( Amer) 193, Glucose 104 H, Calcium 10.4 H, Total Bilirubin 0.8, AST 45 H, ALT 22, Alkaline Phosphatase 79, Total Protein 8.6 H, Albumin 5.4 H, Globulin 3.2, Albumin/Globulin Ratio 1.7, TSH 1.34, Salicylates 1.3 L, Acetaminophen < 10 L 06/24/21 14:30: Lactate 1.0 06/24/21 14:30: Phosphorus 3.3, Magnesium 1.4 L 06/24/21 15:40: Urine Color Yellow, Urine Appearance Clear, Urine pH 7.0, Ur Specific [place] <= 1.005, Urine Protein Negative, Urine Glucose (UA) Negative, Urine Ketones Negative, Urine Blood Negative, Urine Nitrate Negative, Urine Bilirubin Negative, Urine Urobilinogen 0.2, Ur Leukocyte Esterase Negative, Urine RBC None, Urine WBC None, Ur Squamous Epith Cells None, Urine Bacteria None Result diagrams: 06/24/21 14:30 06/24/21 14:30 Orders (Tests/Meds): ED MEDICATIONS Generic Name Dose Route Start Last Admin Trade Name Freq PRN Reason Stop Dose Admin Amlodipine Bes
--- NOTE | 2021-06-24 17:33 | PC.NURSE ---
House aware of pt admission
--- NOTE | 2021-06-24 17:39 | PC.NURSE ---
pt going to room 204
[2021-06-24 17:45] LABS: Coronavirus 19, PCR Not Detected (NotDetected); Influenza A, PCR Not Detected (NotDetected); Influenza B, PCR Not Detected (NotDetected)
--- NOTE | 2021-06-24 17:55 | PC.NURSE ---
Report called to [facility] 2nd floor
[2021-06-25 04:00] VITALS: BP 157/86; PULSE 73; RESP 16; TEMP 37.1; O2SAT 93
--- NOTE | 2021-06-25 07:09 | HMH.HP ---
*Admission Date: 06/24/21 *Chief complaint: altered mental status *History of present illness: this patient presented to the ed - patient is a 65-year-old female with past medical history of strokes, hypertension presenting to the ED for tremors and confusion. Per the patient she states that she has been fatigued, having diffuse body aches. Patient states that she has not been feeling confused, having any numbness, weakness, tingling, vision changes. Additional history obtained from daughter who states that she found the patient wandering. Patient has had urinary incontinence and patient has been unable to care for herself at home. Patient has been evaluated by her primary care physician for multiple mini strokes. 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 Daughter states that yesterday her dog ran away and when she asked the pt about it last night she said the dog was at home. Daughter had asked the pt to go to her front door and she went to the bathroom. She also urinated in her floor which is not normal for the pt per daughter.ot does not remember this this am but was able to known place and my name pt has elevated bp and will restart meds [facility] History I have reviewed the patient's past medical history: Yes Medical History: Reports:: Anxiety, Cancer, Depression, Hypertension, Transient Ischemic Attacks (TIA) Denies:: Diabetes Mellitus Type 1, Diabetes Mellitus Type 2, MRSA *Have you ever received a pneumonia vaccine?: No *Have you received a flu vaccine this season?: No Other Medical History: Reports: Arthritis, Thyroid Disease Laterality Cases: Bilateral: Other Other Surgeries: Yes: Cancer Surgery, Cardiac Catheterization, Colonoscopy, Hysterectomy-Total, Other Amputation: No Fractures: Yes - *Social History Smoking Status: Current every day smoker Tobacco Type: cigarettes # Packs/Day (cigarettes): 1 Alcohol Intake: never Alcohol Intake Frequency:: a few times a week Substance Use Type: denies use *Occupational Status:: unemployed Housing: house Household Members: other *Travel in the last 8 weeks: None - Psychiatric History Pschychiatric History:: Reports:: Anxiety, Depression Family Hx:: Cancer, Diabetes, Heart Attack, Hypertension, Kidney Disease, Hyperlipidemia, Stroke Review of Systems - Review of Systems Review of systems:: pertinent systems reviewed and negative unless documented below - Constitutional Reports weakness, Denies chills, Denies fever(s) - Eyes Denies change in vision - ENT Denies facial pain, Denies sore throat - *Cardiovascular Denies chest pain - *Respiratory Denies cough - *Gastrointestinal Denies abdominal pain - *Genitourinary Denies blood in urine - *Musculoskeletal Denies joint pain, Denies neck pain - Integumentary/Breasts Denies rash - *Neurologic Reports memory loss, Reports weakness, Denies abnormal speech, Denies dizziness, Denies localized weakness, Denies seizure-like activity - Psychiatric Reports difficulty concentrating Meds Home Medications Medication Instructions Recorded Confirmed Type fluticasone propionate 50 1 spray INTRANASAL DAILY g 04/21/21 06/24/21 History mcg/actuation nasal spray,suspension aspirin 81 mg tablet,delayed 81 mg PO DAILY #30 tab 04/24/21 06/24/21 Rx release amlodipine 5 mg tablet 5 mg PO DAILY tab 06/09/21 06/24/21 History losartan 50 mg tablet 50 mg PO DAILY tab 06/22/21 06/24/21 History Albuterol Sulfate [Proventil Hfa] 2 puff INHALATION QID 06/24/21 06/24/21 History Benazepril HCl 40 mg PO DAILY 06/24/21 06/24/21 History Cyanocobalamin (Vitamin B-12) 1,000 mcg SQ MONTHLY 06/24/21 06/25/21 History [Cyanoco
[2021-06-25 07:23] LABS: Chloride 99 mmol/L (98-107); Potassium 3.2 mmoL/L (3.5-5.1); Sodium 133 mmol/L (136-145)
--- NOTE | 2021-06-25 07:24 | XR_ITS ---
PROCEDURE INFORMATION: Exam: XR Chest Exam date and time: 06/25/2021 7:24 AM Age: 65 years old Clinical indication: Shortness of breath; Additional info: SOB TECHNIQUE: Imaging protocol: XR of the chest. Views: 1 view. Note: Portable AP exam 3:16 p.m.. Today's exam is mismarked with respect to right/left, when compared with the prior exam from 2014. COMPARISON: CR CXR1 CHEST-PORTABLE 06/23/2015 10:36 AM FINDINGS: Lungs: Left lower pulmonary volume loss/atelectasis due to the elevated diaphragm. No focal consolidation. Pleural spaces: Unremarkable. No significant pleural effusion. No pneumothorax. Heart/Mediastinum: Cardiac silhouette is probably within upper limits of normal, considering portable AP film technique. Diaphragm: Progressive elevation of the left diaphragm compared with the prior exam from 2014. Gaseous distention of stomach and bowel under the left hemidiaphragm, no significantly dilated loops as visualized. Bones/joints: Osteopenia.There are spinal degenerative changes, with multilevel disc narrrowing and spondylosis. IMPRESSION: 1. Significantly elevated left diaphragm compared with 2015, with left lower pulmonary volume loss/atelectasis. 2. No consolidation. 3. Additional nonemergency and chronic findings as above.
[2021-06-25 07:26] LABS: Anion Gap 10.2 mEq/L (5-15); Blood Urea Nitrogen 3 mg/dl (7-17); Carbon Dioxide 27 mmol/L (22.0-30.0); Creatinine Clearance Estimated 56 mL/min (50-200); Estimated Glomerular Filt Rate 160 ml/min (>60); GFR (African American) 193 ML/MIN (>60)
[2021-06-25 07:27] LABS: Calcium 9.5 mg/dl (8.4-10.2); Glucose 96 mg/dl (74-100)
[2021-06-25 07:38] VITALS: BP 133/90; PULSE 81; RESP 16; TEMP 37.1; O2SAT 97
[2021-06-25 08:00] VITALS: O2SAT 94
[2021-06-25 08:10] LABS: Chol/HDL Ratio 1.7 (1-3.5); Cholesterol 166 mg/dl (140-200); HDL Cholesterol 99 mg/dl (40-60); Triglycerides 49 mg/dl (30-150); VLDL Cholesterol 10 mg/dL (0-40)
[2021-06-25 08:21] LABS: Direct LDL Cholesterol 45.73 mg/dL (100-129)
[2021-06-25 09:28] LABS: Erythrocyte Sedimentation Rate 22 mm/hr (0-30)
--- NOTE | 2021-06-25 13:17 | P.CONPHA_ITS ---
[facility] Pharmacy VTE Monitoring - Patient Demographics Admission date: 06/25/21 Report Date: 06/25/21 Time: 13:17 Allergies/Adverse Reactions: Patient Allergies amoxicillin [From AUGMENTIN] Allergy (Unknown, Verified 06/22/21 11:30) clavulanic acid [From AUGMENTIN] Allergy (Unknown, Verified 06/22/21 11:30) levofloxacin [From LEVAQUIN] Allergy (Unknown, Verified 06/22/21 11:30) Height: 1.68 m Weight: 64.07 kg Patient Problems: Current Active Problems Altered mental status (Acute) Hyponatremia (Acute) Hypothyroidism (acquired) (Acute) Hypertension (Chronic) - VTE Risk Labs: VTE Related Lab Results Hgb 14.0 g/dL (12.2-16.2) 06/24/21 14:30 Hct 43.1 % (37.0-47.0) 06/24/21 14:30 Plt Count 576 K/mm3 (142-424) H 06/24/21 14:30 BUN 3 mg/dl (7-17) L 06/25/21 06:29 Creatinine 0.40 mg/dl (0.52-1.04) L 06/25/21 06:29 Estimated Creat Clear 56 mL/min (50-200) 06/25/21 06:29 - Prophylaxis Types of VTE Prophylaxis: TEDS Knee High Location of Applied Device: Bilateral Lower Extremeties (VERNON HOSE ORDERED)
[2021-06-25 15:23] VITALS: BP 136/79; PULSE 77; RESP 16; TEMP 36.6; O2SAT 94
--- NOTE | 2021-06-25 15:24 | HMH.ITSTN ---
brought patient down to the radiology department and tried to do a 2 view chest-- patient was not able to stand at all independently and unable to sit on stool without a back-- very weak and fall risk-- had to do just a 1 view portable -- I advised the nurse Lynn on the floor
[2021-06-25 20:00] VITALS: BP 136/68; PULSE 64; RESP 16; TEMP 36.6; O2SAT 94
--- NOTE | 2021-06-25 21:43 | PC.NURSE ---
No care needed
[2021-06-25 23:43] LABS: POC Glucose,Bedside 105 (70-110)
[2021-06-26 04:00] VITALS: BP 150/95; PULSE 70; RESP 15; TEMP 37.1; O2SAT 99
--- NOTE | 2021-06-26 05:10 | PC.NURSE ---
At beginning of my shift, pt sitting up in bed. Alert to person, place. Pt c/o back pain. Pt given scheduled percocet. Pt able to take medications independently. Pt has required x2 assist to bedside commode d/t tremoring and weakness. After pt took scheduled bedtime meds, pt very sleepy, unable to answer orientation questions or follow commands. After approximately 3 hours after medication administration, pt back to beginning of shift baseline. Answering questions, requesting help with menu, asked for something to drink and was able to drink soda independently. Bed alarm on. Call light in reach. IV infusing per order. No other episodes or complaints at this time.
[2021-06-26 05:22] VITALS: BMI 24.0
[2021-06-26 07:04] LABS: Basophils % 0.4 % (0.1-2.0); Eosinophils # 0.1 K/mm3 (0.0-0.4); Hematocrit 37.6 % (37.0-47.0); Hemoglobin 11.9 g/dL (12.2-16.2); Lymphocytes # 2.7 K/mm3 (0.7-4.5); Mean Corpuscular HGB Conc 31.7 g/dL (31.8-35.4); Mean Corpuscular Hemoglobin 34.5 pg (27.0-31.2); Mean Corpuscular Volume 108.8 fl (81-99); Mean Platelet Volume 8.5 fl (7.4-10.4); Monocytes # 0.6 K/mm3 (0.1-1.0); Monocytes % 7.6 % (1.7-9.3); Neutrophils # 4.7 K/mm3 (1.8-7.8); Neutrophils % 57.9 % (37.0-80.0); Platelet Count 538 K/mm3 (142-424); Red Blood Count 3.46 M/mm3 (4.20-5.40); Red Cell Distribution Width 13.2 % (11.5-17.5)
[2021-06-26 07:07] LABS: Chloride 102 mmol/L (98-107); Sodium 135 mmol/L (136-145)
[2021-06-26 07:10] LABS: Blood Urea Nitrogen 3 mg/dl (7-17); Calcium 9.1 mg/dl (8.4-10.2); Carbon Dioxide 26 mmol/L (22.0-30.0); Creatinine Clearance Estimated 59 mL/min (50-200); Estimated Glomerular Filt Rate 123 ml/min (>60); GFR (African American) 149 ML/MIN (>60); Glucose 95 mg/dl (74-100)
[2021-06-26 07:54] LABS: Anion Gap 10.2 mEq/L (5-15); Potassium 3.2 mmoL/L (3.5-5.1)
[2021-06-26 08:00] VITALS: O2SAT 99
--- NOTE | 2021-06-26 09:26 | HMH.ACPN2 ---
Internal Medicine - PN: Subj *Date: 06/27/21 *Time: 09:43 Interval history: looks better but unsure of adl/iadl status - labs better- talked with daughter Exam Vital signs and Labs for Last 24 Hours: Temp Pulse Resp BP Pulse Ox 98.8 F 70 15 150/95 H 99 06/26/21 04:00 06/26/21 04:00 06/26/21 04:00 06/26/21 04:00 06/26/21 04:00 Laboratory Results - last 24 hr 06/25/21 06:29: ESR 22 06/25/21 22:44: POC Glucose 105 06/26/21 06:11: WBC 8.0 D, RBC 3.46 L, Hgb 11.9 L, Hct 37.6, MCV 108.8 H, MCH 34.5 H, MCHC 31.7 L, RDW 13.2, Plt Count 538 H, MPV 8.5, Neut % (Auto) 57.9, Lymph % (Auto) 33.0, [place] % (Auto) 7.6, Eos % (Auto) 1.0, Baso % (Auto) 0.4, Neut # (Auto) 4.7, Lymph # (Auto) 2.7, [place] # (Auto) 0.6, Eos # (Auto) 0.1, Baso # (Auto) 0.0 06/26/21 06:11: Sodium 135 L, Potassium 3.2 L, Chloride 102, Carbon Dioxide 26, Anion Gap 10.2, BUN 3 L, Creatinine 0.50 L D, Estimated Creat Clear 59, Estimated GFR 123, Est GFR ( Amer) 149 D, Glucose 95, Calcium 9.1 I & O for Last 24 hours: Intake & Output 06/23/21 06/24/21 06/25/21 06/26/21 11:59 11:59 11:59 11:59 Intake Total 360 / 360 1620 / 1620 Output Total 1100 / 1100 Balance 360 / 360 520 / 520 Weight 141 lb 4 oz 149 lb 4.8 oz Microbiology Reports for the Last 24 Hours: Microbiology 06/24/21 15:40 Urine,Clean Catch Urine Culture - Preliminary NO GROWTH AFTER 24 HOURS - Constitutional no acute distress - *Routine HEENT Exam Head: Present: hematoma Eye: Present: EOMI, PERRL ENT: Present: mucous membranes dry - *Routine Neck Exam Absent: JVD - *Routine Respiratory Exam Present: decreased breath sounds - *Routine Cardiovascular Exam Present: RRR, murmur - *Routine Abdominal Exam Present: soft - *Routine Extremities Exam Absent: calf tenderness - *Routine Skin Exam Present: intact - *Routine Neurological Exam Present: alert, oriented X3, CN II-XII intact. Absent: motor deficit - Routine Psychiatric Exam Present: cooperative Assessment and Plan (1) Hypothyroidism (acquired) Status: Acute Category: Medical Code(s): E03.9 - Hypothyroidism, unspecified (2) Altered mental status Status: Acute Qualifiers: Altered mental status type: unspecified Qualified Code(s): R41.82 - Altered mental status, unspecified Category: Medical Code(s): R41.82 - Altered mental status, unspecified (3) Hyponatremia Status: Acute Category: Medical Code(s): E87.1 - Hypo-osmolality and hyponatremia (4) Hypertension Status: Chronic Qualifiers: Hypertension type: unspecified Qualified Code(s): I10 - Essential (primary) hypertension Category: Medical Code(s): I10 - Essential (primary) hypertension
[2021-06-26 19:58] VITALS: BP 150/76; PULSE 64; RESP 16; TEMP 36.9; O2SAT 97
[2021-06-27 04:00] VITALS: BP 175/91; PULSE 81; RESP 18; TEMP 36.8; O2SAT 94
[2021-06-27 05:00] VITALS: BMI 22.8
--- NOTE | 2021-06-27 05:01 | PC.NURSE ---
Pt has had no acute episodes thus far. Pt is oriented to person, place. When asked about date/time and situation pt states I dont know. Pt has been more alert tonight and mobility has improved. Pt has only required standby to 1 assist. Pt has had good UOP. IV infusing per order. Pt does occasionally try to get up to BSC without calling for assistance. Bed alarm on for safety. No complaints at this time. Call light in reach.
[2021-06-27 08:00] VITALS: BP 177/86; PULSE 73; RESP 18; TEMP 36.9; O2SAT 98
--- NOTE | 2021-06-27 10:29 | HMH.OTEV ---
OT Inpatient Evaluation Rehab OT IP Evaluation Start: 06/26/21 09:23 Freq: ONCE Status: Complete Protocol: Document 06/27/21 10:16 CRYS (Rec: 06/27/21 10:29 CRYS [id number]) Rehab OT IP Assessment Subjective History *Admission Date: 06/24/21 *Chief complaint: altered mental status *History of present illness: this patient presented to the ed - patient is a 65-year-old female with past medical history of strokes, hypertension presenting to the ED for tremors and confusion. Per the patient she states that she has been fatigued, having diffuse body aches. Patient states that she has not been feeling confused, having any numbness, weakness, tingling, vision changes. Additional history obtained from daughter who states that she found the patient wandering. Patient has had urinary incontinence and patient has been unable to care for herself at home. Patient has been evaluated by her primary care physician for multiple mini strokes. 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 Daughter states that yesterday her dog ran away and when she asked the pt about it last night she said the dog was at home. Daughter had asked the pt to go to her
--- NOTE | 2021-06-27 10:31 | HMH.DCSUM ---
General - General Admission date:: 06/24/21 Discharge date: 06/27/21 HPI HPI: this patient presented to the ed - patient is a 65-year-old female with past medical history of strokes, hypertension presenting to the ED for tremors and confusion. Per the patient she states that she has been fatigued, having diffuse body aches. Patient states that she has not been feeling confused, having any numbness, weakness, tingling, vision changes. Additional history obtained from daughter who states that she found the patient wandering. Patient has had urinary incontinence and patient has been unable to care for herself at home. Patient has been evaluated by her primary care physician for multiple mini strokes. pt was found to have hyponatremia and was admitted for eval and treatment -pt had been admitted at 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 Daughter states that yesterday her dog ran away and when she asked the pt about it last night she said the dog was at home. Daughter had asked the pt to go to her front door and she went to the bathroom. She also urinated in her floor which is not normal for the pt per daughter.ot does not remember this this am but was able to known place and my name pt has elevated bp and will restart meds Hospital Course Hospital Course: Laboratory Tests 06/24/21 06/24/21 06/24/21 14:30 14:30 14:30 WBC 11.7 H RBC 4.07 L Hgb 14.0 Hct 43.1 MCV 105.9 H MCH 34.4 H MCHC 32.5 RDW 13.1 Plt Count 576 H MPV 8.0 Neut % (Auto) 81.2 H Lymph % (Auto) 11.2 [place] % (Auto) 5.1 Eos % (Auto) 1.8 Baso % (Auto) 0.7 Neut # (Auto) 9.5 H Lymph # (Auto) 1.3 [place] # (Auto) 0.6 Eos # (Auto) 0.2 Baso # (Auto) 0.1 ESR Sodium 125 L Potassium 4.0 Chloride 87 L Carbon Dioxide 24 Anion Gap 18.0 H BUN 4 L Creatinine 0.40 L Estimated Creat Clear 61 Estimated GFR 160 Est GFR ( Amer) 193 Glucose 104 H POC Glucose Lactate 1.0 Calcium 10.4 H Phosphorus Magnesium Total Bilirubin 0.8 AST 45 H ALT 22 Alkaline Phosphatase 79 Total Protein 8.6 H Albumin 5.4 H Globulin 3.2 Albumin/Globulin Ratio 1.7 Triglycerides Cholesterol LDL Cholesterol Direct VLDL Cholesterol HDL Cholesterol Cholesterol/HDL Ratio TSH 1.34 Urine Color Urine Appearance Urine pH Ur Specific [place] Urine Protein Urine Glucose (UA) Urine Ketones Urine Blood Urine Nitrate Urine Bilirubin Urine Urobilinogen Ur Leukocyte Esterase Urine RBC Urine WBC Ur Squamous Epith Cells Urine Bacteria Salicylates 1.3 L Acetaminophen < 10 L SARS-CoV-2 (PCR) Influenza A Untype (PCR) Influenza Type B (PCR) 06/24/21 06/24/21 06/24/21 14:30 15:40 17:38 WBC RBC Hgb Hct MCV MCH MCHC RDW Plt Count MPV Neut % (Auto) Lymph % (Auto) [place] % (Auto) Eos % (Auto) Baso % (Auto) Neut # (Auto) Lymph # (Auto) [place] # (Auto) Eos # (Auto) Baso # (Auto) ESR Sodium Potassium Chloride Carbon Dioxide Anion Gap BUN Creatinine Estimated Creat Clear Estimated GFR Est GFR ( Amer) Glucose POC Glucose Lactate Calcium Phosphorus 3.3 Magnesium 1.4 L Total Bilirubin AST ALT Alkaline Phosphatase Total Protein Albumin Globulin Albumin/Globulin Ratio Triglycerides Cholesterol LDL Cholesterol Direct VLDL Cholesterol HDL Cholesterol Cholesterol/HDL Ratio TSH Urine Color Yellow Urine Appearance Clear Urine pH 7.0 Ur Specific [place] <= 1.005 Urin
--- NOTE | 2021-06-27 11:17 | HMH.PTEV ---
Physical Therapy Evaluation Rehab PT IP Evaluation Start: 06/26/21 09:22 Freq: ONCE Status: Active Protocol: Document 06/27/21 11:13 ANDERSON (Rec: 06/27/21 11:16 ANDERSON [id number]) Subjective/History History History this patient presented to the ed - patient is a 65-year-old female with past medical history of strokes, hypertension presenting to the ED for tremors and confusion. Per the patient she states that she has been fatigued, having diffuse body aches. Patient states that she has not been feeling confused, having any numbness, weakness, tingling, vision changes. Additional history obtained from daughter who states that she found the patient wandering. Patient has had urinary incontinence and patient has been unable to care for herself at home. Patient has been evaluated by her primary care physician for multiple mini strokes. Subjective Subjective pt reports she wants to go home Rehab PT IP Eval Objective Appearance Patient Behavior Appropriate,Cooperative Patient Orientation Person,Place,Time Difficulty following instructions none Speech Pattern Clear,Appropriate Ambulation Patient Able to Ambulate Yes Ambulation Observation IP General Gait Pattern Observation Wide Based Gait Ambulation Distance (feet) 25 Ambulation Assistive Device None Ambulation Ability Contact Guard/Hand Hold Balance Ability to Arise Able, uses arms to help Sitting Balance Steady, safe Standing Balance Steady, wide stance Dynamic Sitting Balance Ability Good Dynamic Standing Balance Ability Fair Transfers Bed Transfer Ability Independent Chair Transfer Ability Independent Sit to Stand Bed Transfer Ability Independent Sit to Stand Chair Transfer Ability Independent Rehab PT IP prob,goals,plan Problems Date of Evaluation: 06/27/21 Rehab Potential Rehab Potential Innapropriate for Skilled Therapy Discharge Plan PT Discharge Plan pt to fl home w/ SENTHIL G -c
--- NOTE | 2021-06-27 13:34 | SW/DCPLANNER ---
RECEIVED REFERRAL FOR THIS PATIENT FOR HOME HEALTH PT/OT AND CARE HOME... I HAVE CALLED EVERY AGENCY I KNOW AND NOBODY HAS A CONTRACT WITH ANY OF THE HOME HEALTH AGENCIES THAT SERVICE SAJAN... PATIENT HAS AN ANTHEM/MCR AND DISCHARGED HOME, SHE STATED SHE REALLY DIDN'T WANT ANY HOME HEALTH SERVICES BUT THE THERAPY DEPT STATED SHE COULD BENEFIT FROM SERVICES... I CALLED AND LEFT A LENGTHY MESSAGE TO CALL ME BACK SO WE COULD SET HER UP WITH OUR OUTPATIENT DEPT SO THEY CAN DO THERAPY WITH HER.. SHE HAS NOT RETURNED MY CALL AT THIS TIME..
== END 2021-06-27 12:34 | disposition home health service (06) | DRG 641 ==
LOC: ER 14:14 → 2ND 17:42 → ICU 06-26 13:09
PROVIDERS: Admitting Provider Internal Medicine Adolescent Medicine; Emergency Provider Emergency Medicine; PCP Emergency Medicine; Visit Provider Emergency Medicine
DX: E87.1 Hypo-osmolality and hyponatremia (principal); E03.9 Hypothyroidism, unspecified; I10 Essential (primary) hypertension; F17.210 Nicotine dependence, cigarettes, uncomplicated; Z20.822 Contact with and (suspected) exposure to COVID-19; Z86.73 Personal history of transient ischemic attack (TIA), and cerebral infarction without residual deficits; F41.9 Anxiety disorder, unspecified; F32.A Depression, unspecified; R26.9 Unspecified abnormalities of gait and mobility
CPT/HCPCS: 36415; 70450; 70496; 70498; 71045; 74177; 80048; 80053; 80061; 80329; 81001; 82962; 83605; 83735; 84100; 84443; 85025; 85651; 87086; 96365; 97161; 97165; 99284; C9803; Q9967; U0003; U0005

== ENCOUNTER 2021-12-02 14:54 | Inpatient (IN) | payer MEDICARE, SELFPAY ==
[2021-12-02] VITALS (8 sets, daily range): BP systolic 133–180; BP diastolic 70–105; PULSE 64–86; RESP 30; TEMP 36.9; O2SAT 93–98; BMI 21.8
--- NOTE | 2021-12-02 15:11 | CT_ITS ---
FINAL REPORT CLINICAL HISTORY: luq pain FINDINGS: CT OF THE ABDOMEN AND PELVIS WITH CONTRAST Axial CT images of the abdomen and pelvis were obtained after the administration of oral and iv contrast. Coronal reformatted images were also obtained and reviewed.This study was performed with techniques to keep radiation doses as low as reasonably achievable (ALARA). Individualized dose reduction techniques using automated exposure control or adjustment of mA and/or kV according to the patient's size were employed. Abdomen: There is a cyst in the anterior liver dome measuring 2.7 cm. The patient is status post cholecystectomy. There is moderate biliary dilatation favored to be postoperative. The spleen is unremarkable. No adrenal mass is present. The pancreas has an unremarkable appearance. There is a small cyst in the left kidney which is stable. There are no renal stones or hydronephrosis. The aorta is normal in caliber. There are moderate vascular calcifications. There is no free fluid or adenopathy. No mass or abnormal fluid collection is seen. Pelvis: The appendix is not well-visualized. The urinary bladder is unremarkable. No inflammatory process is seen. There is a left adnexal mass measuring 36 mm which is stable and may represent a cyst. There is no evidence of bowel obstruction. Postoperative changes are seen in the bony pelvis and left femur. IMPRESSION: 2.7 cm cyst in the anterior liver dome. Moderate biliary dilatation favored to be related prior cholecystectomy. Stable left adnexal mass favored to represent a cyst. Reviewed, Interpreted and Dictated by Leo Guzman III, MD Transcribed by Magaly Dewey Authenticated and [facility]
--- NOTE | 2021-12-02 15:23 | XR_ITS ---
FINAL REPORT CLINICAL HISTORY: pain FINDINGS: A single view of the chest was obtained. The heart is normal in size. The mediastinum is unremarkable. There is mild bibasilar atelectasis. There is no pleural effusion. There is no pneumothorax. IMPRESSION: Mild bibasilar atelectasis. Reviewed, Interpreted and Dictated by Leo Guzman III, MD Transcribed by Magaly Dewey Authenticated and [facility]
--- NOTE | 2021-12-02 15:27 | HMH.EDGENADL ---
ED Disposition Condition on Discharge: Serious - Critical Care Critical Care Time: No <Jeremy Batres - Last Filed: 12/02/21 20:21> <Eris Calderon - Last Filed: 12/03/21 09:30> Clinical Impression: Vertebral osteomyelitis Discitis Qualifiers: Spinal region: thoracic Qualified Code(s): M46.44 - Discitis, unspecified, thoracic region Vertebral fracture, pathological Qualifiers: Pathology associated with fracture: unspecified disease Encounter type: initial encounter Qualified Code(s): M84.48XA - Pathological fracture, other site, initial encounter for fracture Disposition: Admitted As Inpatient Referrals: Eris Calderon MD [Primary Care Provider] - Attestation: On 12/02/21, the high probability of a clinically significant, sudden or life threatening deterioration of the following system(s) required my full and direct attention, intervention and personal management. The time I documented below is in addition to time spent performing reported procedures but includes the following listed in this critical care notation. Medical Decision Making - Medical Records Medical records reviewed: Yes: I reviewed the patient's medical records. MR Comment: Accessed [facility], no recent visits/admissions for vertebral fractures. Last admission was in June 2021 for altered mental status. No recent CT scans or x-rays of spine here for comparison. - Theo Inquiry Pt receiving controlled substance: Yes Theo was queried for this patient: Yes Risks and benefits of using a controlled substance: were not discussed with pt by me - Lab Data Result diagrams: 12/02/21 15:22 12/02/21 15:22 - CT Data CT Scan: Abdomen, Pelvis, T-Spine, L-Spine Time Received: 17:[address] Reviewed: Yes: I have viewed the radiologist's interpretation - Physician Consults Physician Consulted: Yumiko Time: 17:20 Reason -: Pt condition Comment/Response: Vancomycin and cefepime. Pursue transfer to higher level of care, admit here if unable to transfer to [place]. Additional Consult: Judith Time: 18:05 Reason -: Transfer to another facilty Comment/Response: Dr. Wong [facility] transfer center and neurosurgeon on conference call. Neurosurgeon will not accept to their service. They recommended the patient be admitted to the medical service. Dr. Wong states no medical beds available for several days but he will put the patient on a wait list. Additional Consult: Quinn - neurosurgery - [facility] Time: 18:48 Reason -: Transfer to another facilty Comment/Response: Recommends that transfer center contact hospitalist to accept transfer, no neurosurgical intervention needed <GiselJeremy - Last Filed: 12/02/21 20:21> - Lab Data Result diagrams: 12/02/21 15:22 12/02/21 15:22 <Eris Calderon - Last Filed: 12/03/21 09:30> Vital Signs: 12/02/21 14:55 12/02/21 20:29 12/02/21 21:00 Temperature 98.4 F Temperature Source Oral Pulse Rate 70 78 Pulse Rate [Radial] 86 Respiratory Rate 30 H Blood Pressure 180/89 H 143/92 H Blood Pressure [Right Arm] 180/105 H Blood Pressure Mean Blood Pressure Mean [Right Arm] 130 Blood Pressure Position [Right Arm] Sitting 02 Sat by Pulse Oximetry 98 94 L 95 Oxygen Delivery Method Room Air Room Air Room Air 12/02/21 21:30 12/02/21 22:00 12/02/21 22:32 Temperature Temperature Source Pulse Rate 75 73 68 Pulse Rate [Radial] Respiratory Rate Blood Pressure 154/103 H 133/104 H 151/83 H Blood Pressure [Right Arm] Blood Pressure Mean Blood Pressure Mean [Right Arm] Blood Pressure Position [Right Arm] 02 Sat by Pulse Oximetry 94 L 93 L 94 L Oxygen Delivery Method Room Air Room Air Room Air 12/02/21 23:00 12/02/21 23:52 12/03/21 00:00 Temperature Temperature Source Pulse Rate 64 64 71 Pulse Rate [Radial] Respiratory Rate 21 Blood Pressure 147/77 H 149/70 H 152/87 H Blood Pressure [Right Arm] Blood Pressure
[2021-12-02 15:33] LABS: Basophils # 0.1 K/mm3 (0-0.2); Basophils % 1.2 % (0.1-2.0); Eosinophils # 0.2 K/mm3 (0.0-0.4); Eosinophils % 1.9 % (0.1-12.0); Hematocrit 35.7 % (37.0-47.0); Hemoglobin 11.5 g/dL (12.2-16.2); Lymphocytes # 3.1 K/mm3 (0.7-4.5); Mean Corpuscular HGB Conc 32.3 g/dL (31.8-35.4); Mean Corpuscular Hemoglobin 30.1 pg (27.0-31.2); Mean Platelet Volume 7.7 fl (7.4-10.4); Monocytes # 0.6 K/mm3 (0.1-1.0); Monocytes % 4.9 % (1.7-9.3); Neutrophils # 7.9 K/mm3 (1.8-7.8); Neutrophils % 66.1 % (37.0-80.0); Platelet Count 821 K/mm3 (142-424); Red Blood Count 3.84 M/mm3 (4.20-5.40); Red Cell Distribution Width 19.3 % (11.5-17.5)
[2021-12-02 15:36] LABS: Chloride 91 mmol/L (98-107); Sodium 128 mmol/L (136-145)
[2021-12-02 15:38] LABS: Lactic Acid 1.8 mmol/L (0.7-2.1)
[2021-12-02 15:39] LABS: Alanine Aminotransferase 16 U/L (12-78); Albumin Level 4.5 g/dl (3.5-5.0); Albumin/Globulin Ratio 1.2 (1.1-1.8); Alkaline Phosphatase 80 U/L (38-126); Aspartate Amino Transferase 29 U/L (14-36); Bilirubin,Total 0.4 mg/dl (0.2-1.3); Blood Urea Nitrogen 10 mg/dl (7-17); Calcium 10.1 mg/dl (8.4-10.2); Carbon Dioxide 27 mmol/L (22.0-30.0); Creatinine Clearance Estimated 51 mL/min (50-200); Estimated Glomerular Filt Rate 100 ml/min (>60); GFR (African American) 121 ML/MIN (>60); Globulin 3.8 g/dL (1.3-3.2); Glucose 124 mg/dl (74-100); Lipase 45 U/L (23-300); Total Protein,Serum 8.3 g/dl (6.3-8.2)
--- NOTE | 2021-12-02 15:41 | CT_ITS ---
FINAL REPORT TECHNIQUE: Axial imaging of the lumbar spine was obtained without contrast. Sagittal and coronal reformatted images were also obtained and reviewed. This study was performed with techniques to keep radiation doses as low as reasonably achievable (ALARA). Individualized dose reduction techniques using automated exposure control or adjustment of mA and/or kV according to the patient''s size were employed. CLINICAL HISTORY: pain FINDINGS: There is no fracture. There is 10 mm of anterolisthesis of L4 on L5. There are moderate to severe degenerative changes. There is vacuum phenomenon at L4-5 and L5-S1. There is multilevel facet arthropathy. Neural foraminal narrowing is seen, greatest at L4-5. There is mild central canal stenosis at L4-5. IMPRESSION: Multilevel degenerative change without acute bony abnormality. Reviewed, Interpreted and Dictated by Leo Guzman III, MD Transcribed by Magaly Dewey Authenticated and [facility]
--- NOTE | 2021-12-02 15:42 | CT_ITS ---
FINAL REPORT CLINICAL HISTORY: pain COMPARISON: CT abdomen and pelvis dated 06/24/2021 FINDINGS: Axial CT images of the thoracic spine were obtained without contrast. Sagittal and coronal reformatted images were also obtained. This study was performed with techniques to keep radiation doses as low as reasonably achievable (ALARA). Individualized dose reduction techniques using automated exposure control or adjustment of mA and/or kV according to the patient's size were employed. There is a severe T12 compression fracture. There is mild compression of the inferior endplate at T11. There is significant endplate irregularity. There is a fracture of the T11 spinous process. There is paraspinal soft tissue at T11 and T12 most consistent with T11-T12 discitis/osteomyelitis with pathologic fractures of T11 and T12. This is new as compared to the prior CT in June 2021. There is mild central canal stenosis at T11-12 with an AP diameter of the thecal sac of 9 mm. There are moderate degenerative changes elsewhere with osteophytes. Note is made of mild atelectasis. IMPRESSION: Discitis/osteomyelitis at T11-12 with pathologic fractures of T11 and T12. Reviewed, Interpreted and Dictated by Leo Guzman III, MD Transcribed by Magaly Dewey Authenticated and [facility]
--- NOTE | 2021-12-02 16:32 | PC.NURSE ---
pt returned from ct tearful c/o increased pain after moving from ct table to stretcher
--- NOTE | 2021-12-02 17:15 | PC.NURSE ---
pged DR DALE @ [phone]
--- NOTE | 2021-12-02 17:16 | PC.NURSE ---
DR DALE called back @[phone]
--- NOTE | 2021-12-02 17:31 | PC.NURSE ---
contacted lab to have them come draw blood cultures on pt
--- NOTE | 2021-12-02 17:40 | PC.NURSE ---
contacting [facility] MD[facility] per ER request
--- NOTE | 2021-12-02 17:43 | PC.NURSE ---
waiting director of labor relations back from [facility]
[2021-12-02 17:49] LABS: Coronavirus 19, PCR Not Detected (NotDetected); Influenza A, PCR Not Detected (NotDetected); Influenza B, PCR Not Detected (NotDetected)
--- NOTE | 2021-12-02 18:36 | PC.NURSE ---
PT CONTINUES TO C/O PAIN PT TEARFUL
--- NOTE | 2021-12-02 18:38 | PC.NURSE ---
Called [facility] call transfer center requested bed @ 1830 cooler operator provider is due to call back soon no beds available at [facility]
--- NOTE | 2021-12-02 18:45 | PC.NURSE ---
[facility]. on phone with
[2021-12-02 19:02] LABS: Erythrocyte Sedimentation Rate 93 mm/hr (0-30)
--- NOTE | 2021-12-02 19:07 | PC.NURSE ---
Dr. Batres s/w Dr. Jeter with [facility]
--- NOTE | 2021-12-02 19:32 | PC.NURSE ---
FAMILY UPDATED ON PLAN OF CARE
--- NOTE | 2021-12-02 20:34 | PC.NURSE ---
Pt able to use bed side toilet with assistance. Pt complains of severe pain.
--- NOTE | 2021-12-02 21:27 | PC.NURSE ---
Spoke with Gabbie at [facility] she advised they had no bed available, but would continue to work on it.
[2021-12-03] VITALS (9 sets, daily range): BP systolic 125–181; BP diastolic 73–96; PULSE 61–78; RESP 16–23; TEMP 36.5–37.2; O2SAT 91–98; BMI 21.3
--- NOTE | 2021-12-03 00:09 | PC.NURSE ---
pt's PIV to Left hand is leaking when flushed. Dressing rx and luer attachment was loose, tightened it and replaced dressing. PIV patent and not leaking at this time. Pain medication instilled.
--- NOTE | 2021-12-03 00:47 | PC.NURSE ---
pt moved to hospital bed and room with a door. pt has no c/o @ this time. call light within reach
--- NOTE | 2021-12-03 02:57 | PC.NURSE ---
Pt resting comfortably.
--- NOTE | 2021-12-03 03:22 | PC.NURSE ---
Gabbie at [facility] advised there were no beds available at this time
--- NOTE | 2021-12-03 04:52 | PC.NURSE ---
Pt ambulated to the BR with walker and staff sba x2, she tolerated fair and had significant pain with ambulation. Pt assisted into a gown, non-skid socks, and top sheets changed d/t pt spilling water on them. Medicated for pain relief per MAR, effectiveness noted.
--- NOTE | 2021-12-03 06:12 | PC.NURSE ---
pt sleeping comfortably at this time. Call light within reach.
--- NOTE | 2021-12-03 08:38 | PC.NURSE ---
Patient ambulated with walker to bathroom. Stated she was hurting really bad. Patient cried on the way to the bathroom and is grimacing. RN notified
--- NOTE | 2021-12-03 08:41 | PC.NURSE ---
Called [facility] again at this time checking on status of bed for this patient. Stated that they do not have a bed at this time. will update us again at 1500. (3pm). Dr. Delvalle updated. MARCI Garcia notified as well.
--- NOTE | 2021-12-03 08:43 | HMH.PHACONS ---
- Pharmacy Consult Date: 12/03/21 Time: 08:43 Referring provider: DR HENDERSON Reason for Consult:: VANCOMYCIN DOSING CONSULT Allergies and ADEs:: Allergies Allergy/AdvReac Type Severity Reaction Status Date / Time amoxicillin [From AUGMENTIN] Allergy Unknown Verified 12/02/21 13:41 clavulanic acid Allergy Unknown Verified 12/02/21 13:41 [From AUGMENTIN] levofloxacin [From LEVAQUIN] Allergy Unknown Verified 12/02/21 13:41 Home Medications:: Home Medications Medication Instructions Recorded Confirmed Type fluticasone propionate 50 1 spray INTRANASAL DAILY g 04/21/21 12/02/21 History mcg/actuation nasal spray,suspension aspirin 81 mg tablet,delayed 81 mg PO DAILY #30 tab 04/24/21 12/02/21 Rx release Albuterol Sulfate [Proventil Hfa] 2 puff INHALATION QID 06/24/21 12/02/21 History Memantine HCl 10 mg PO BID 06/24/21 12/02/21 History Memantine HCl [Memantine 5mg 5 mg PO BID 06/24/21 12/02/21 History Tablet] Omeprazole 40 mg PO DAILY 06/24/21 12/02/21 History amlodipine 5 mg tablet 5 mg PO DAILY #90 tab 08/09/21 12/02/21 Rx tramadol 50 mg tablet 50 mg PO TID #90 tab 10/11/21 12/02/21 Rx oxybutynin chloride 5 mg tablet 5 mg PO BID #180 tab 11/08/21 12/02/21 Rx losartan 100 mg tablet 100 mg PO DAILY #90 tab 11/18/21 12/02/21 Rx Cyanocobalamin (Vitamin B-12) 1,000 mcg SQ MONTHLY 12/02/21 12/02/21 History [Cyanocobalamin 1,000mcg/mL Vial] Divalproex Sodium [Divalproex 1,000 mg PO HS 12/02/21 12/02/21 History Sodium ER] Fexofenadine HCl [Aller-Ease] 180 mg PO DAILY 12/02/21 12/02/21 History Fluoxetine HCl 40 mg PO DAILY 12/02/21 12/02/21 History Levothyroxine Sodium [Synthroid 50 mcg PO DAILY 12/02/21 12/02/21 History 50mcg (0.05mg) tab] clonazepam 0.5 mg tablet 0.5 mg PO BID #60 tab 12/02/21 12/02/21 Rx gabapentin 600 mg tablet 600 mg PO TID #90 tab 12/02/21 12/02/21 Rx oxycodone-acetaminophen 10 mg-325 1 tab PO QID #120 tab 12/02/21 12/02/21 Rx mg tablet Height: 1.65 m Weight: 59.421 kg Laboratory Results:: Laboratory Results - last 24 hr 12/02/21 15:22: WBC 12.0 H, RBC 3.84 L, Hgb 11.5 L, Hct 35.7 L, MCV 93.0, MCH 30.1, MCHC 32.3, RDW 19.3 H, Plt Count 821 H, MPV 7.7, Neut % (Auto) 66.1, Lymph % (Auto) 26.0, Gooding % (Auto) 4.9, Eos % (Auto) 1.9, Baso % (Auto) 1.2, Neut # (Auto) 7.9 H, Lymph # (Auto) 3.1, Gooding # (Auto) 0.6, Eos # (Auto) 0.2, Baso # (Auto) 0.1 12/02/21 15:22: Sodium 128 L, Potassium 4.0, Chloride 91 L, Carbon Dioxide 27, Anion Gap 14.0, BUN 10, Creatinine 0.60, Estimated Creat Clear 51, Estimated GFR 100, Est GFR ( Amer) 121, Glucose 124 H, Calcium 10.1, Total Bilirubin 0.4, AST 29, ALT 16, Alkaline Phosphatase 80, Total Protein 8.3 H, Albumin 4.5, Globulin 3.8 H, Albumin/Globulin Ratio 1.2, Lipase 45 12/02/21 15:22: Lactate 1.8 12/02/21 15:22: C-Reactive Protein 30.0 H 12/02/21 17:40: SARS-CoV-2 (PCR) Not detected, Influenza A Untype (PCR) Not detected, Influenza Type B (PCR) Not detected 12/02/21 18:06: ESR 93 H Medical History: Reports:: Anxiety, Cancer, Depression, Hypertension, Transient Ischemic Attacks (TIA) Denies:: Diabetes Mellitus Type 1, Diabetes Mellitus Type 2, MRSA Assessment and Plan - Assessment and plan all Dx Assessment and Plan for all problems:: Pharmacokinetic dosing service Objective: Age: 66 yo Serum creatinine: 1 mg/dL Height: 65.0 Inches Weight (kg): 59.421 Diagnosis: OSTEOMYELITIS Assessment: IBW (kg): 57.00 Dosing wt(kg): 59.421 Estimated Creatinine clearance (ml/min): 49.1 CRCL method: Cockcroft and Gault using ibw(default). Drug selected: Vancomycin Loading dose (mg): Vd (liters): 41.6 (factor used: 0.7 L/kg) Yuri (hr-1): 0.045 Half life (hrs): 15.40 CLvanco=?? 1.872 L/hr Recommended dose: 1000 mg Interval: 24 hrs Infusion time (hrs): 2.0 Predicted peak (mcg/mL): 34.8 Predicted tr
--- NOTE | 2021-12-03 09:32 | PC.NURSE ---
loading rack supervisor has been notified on admission for patient.
--- NOTE | 2021-12-03 09:33 | PC.NURSE ---
Spoke with House while in ER about inpatient admission. elizabet said she would get a bed.
--- NOTE | 2021-12-03 09:35 | HMH.HP ---
*Admission Date: 12/03/21 *Chief complaint: back pain *History of present illness: this patient presented to [facility] pcp and has had progressive t -spine pain over the last 2 weeks w/o rash or fever and no trauma - pt has had prev t spine fx and had been at [facility] for rehab and had been doing better - pt was seen in the ed - patient is sent from Dr. Calderon's office. She says that she broke her back a couple of months ago. She thinks she was seen at [facility]. She was admitted to a [facility] for that after discharge. She said that she had been able to get around with a walker fairly well until the past week to week and a half. She said that she bent over to get in the lower portion of the refrigerator while sitting in a wheelchair and had severe pain in her lower back which has persisted ever since then. She locates the pain as mid lumbar to lower thoracic. Also for the past week she has pain in her left upper quadrant and left flank that goes all the way around the back to her spine. Pain is much worse with movement. With movement the pain will go down her left leg as well. No new numbness or weakness. She was seen in Dr. Calderon's office today. He reports that they performed a urine analysis and have prescribed an antibiotic and pain medication but we would like her to come to the emergency room to get CT scans and blood work for further evaluation. May discharge if no conditions requiring inpatient level of care found. 7:06 PM: Spoke with Dr. Womack, hospitalist at [facility]. He accepts the patient to a [facility] telemetry bed pending bed availability. Transfer center thinks a bed may be available tonight and they will call back after 9 PM. (Jeremy Batres) Medical Decision Narrative: Discussed findings with patient. She has no history of intravenous drug abuse or spinal surgery. She does have a history of bone cancer in her leg several years ago which she says was resected and they got it all . 8:20 PM: At shift change, I have discussed the patient with the oncoming physician, who will assume care of the patient at this time. I have discussed all clinical information including history, physical and diagnostic study results. Preliminary diagnoses based on information available at this point have been recorded by me. Awaiting contact from [facility] about bed availability. (Jeremy Batres) pt was admitted for treatment till bed available for transfer [facility] History I have reviewed the patient's past medical history: Yes Medical History: Reports:: Anxiety, Cancer, Depression, Hypertension, Transient Ischemic Attacks (TIA) Denies:: Diabetes Mellitus Type 1, Diabetes Mellitus Type 2, MRSA *Have you ever received a pneumonia vaccine?: Yes *Have you received a flu vaccine this season?: Yes Other Medical History: Reports: Arthritis, Thyroid Disease Laterality Cases: Bilateral: Other Other Surgeries: Yes: Cancer Surgery, Cardiac Catheterization, Colonoscopy, Hysterectomy-Total, Other Amputation: No Fractures: Yes - *Social History Smoking Status: Current every day smoker Tobacco Type: cigarettes # Packs/Day (cigarettes): 1 Alcohol Intake: never Alcohol Intake Frequency:: a few times a week Substance Use Type: denies use *Occupational Status:: unemployed Housing: house Household Members: other *Travel in the last 8 weeks: None - Psychiatric History Pschychiatric History:: Reports:: Anxiety, Depression Family Hx:: Cancer, Diabetes, Heart Attack, Hypertension, Kidney Disease, Hyperlipidemia, Stroke Review of Systems - Review of Systems Review of systems:: pertinent systems reviewed and negative unless documented below - Constitutional Reports weakness, Denies fever(s) - Eyes Denies change in vision - ENT Denies sore throat - *Cardiovascular Denies chest pain - *Respiratory Denies cough - *Gastrointestinal Denies abdominal pain - *Genitourinary Denies blood in urine - *Musculoskeletal
--- NOTE | 2021-12-03 10:13 | PC.NURSE ---
patient is resting in bed. nothing needed at this time. she is resting comfortably. Inpatient room has been assigned to patient; room 208 is the patient's room. MARCI Garcia notified at this time of bed assignment.
--- NOTE | 2021-12-03 10:21 | PC.NURSE ---
Patient turned call light on, wanted a cold Diet Pepsi and something for pain. MARCI Garcia notified of pain medication and stated that she would get her some pain meds.
--- NOTE | 2021-12-03 10:40 | PC.NURSE ---
ATTEMPTED TO CALL REPORT TO FLOOR, NURSE IN A PT'S ROOM WILL CALL BACK
--- NOTE | 2021-12-03 11:06 | PC.NURSE ---
REPORT CALLED TO FLOOR
--- NOTE | 2021-12-03 11:29 | PC.NURSE ---
Med-surg staff down here to get patient to take her to inpatient room.
--- NOTE | 2021-12-03 11:34 | PC.NURSE ---
Pt arrived to the floor at this time
--- NOTE | 2021-12-03 12:12 | P.CONPHA_ITS ---
[facility] Pharmacy VTE Monitoring - Patient Demographics Admission date: 12/03/21 Report Date: 12/03/21 Time: 12:12 Allergies/Adverse Reactions: Patient Allergies amoxicillin [From AUGMENTIN] Allergy (Unknown, Verified 12/02/21 13:41) clavulanic acid [From AUGMENTIN] Allergy (Unknown, Verified 12/02/21 13:41) levofloxacin [From LEVAQUIN] Allergy (Unknown, Verified 12/02/21 13:41) Height: 1.68 m Weight: 59.931 kg Patient Problems: Current Active Problems Discitis (Acute) Vertebral fracture, pathological (Acute) Vertebral osteomyelitis (Acute) - VTE Risk Labs: VTE Related Lab Results Hgb 11.5 g/dL (12.2-16.2) L 12/02/21 15:22 Hct 35.7 % (37.0-47.0) L 12/02/21 15:22 Plt Count 821 K/mm3 (142-424) H 12/02/21 15:22 BUN 10 mg/dl (7-17) 12/02/21 15:22 Creatinine 0.60 mg/dl (0.52-1.04) 12/02/21 15:22 Estimated Creat Clear 51 mL/min (50-200) 12/02/21 15:22 Was VTE Risk Assessment Performed: No Clinical Trial Participant: No - Prophylaxis VTE Prophylaxis Ordered?: Yes Types of VTE Prophylaxis: TEDS Knee High Location of Applied Device: Bilateral Lower Extremeties
--- NOTE | 2021-12-03 16:34 | PC.NURSE ---
Spoke to [facility], no beds available at this time. They will call again at approx 2100 tonight.
--- NOTE | 2021-12-03 18:03 | PC.NURSE ---
Pt has done well since being up to the floor. Pt requests PRN pain meds approx q3-4h. Pt has been turned upon request. Pt did request o2 d/t wearing 3LNC while asleep. has called for an update at 1730, no beds available at this time, will monitor.
--- NOTE | 2021-12-03 22:06 | HMH.DCSUM ---
General - General Admission date:: 12/03/21 Discharge date: 12/03/21 HPI HPI: this patient presented to [facility] pcp and has had progressive t -spine pain over the last 2 weeks w/o rash or fever and no trauma - pt has had prev t spine fx and had been at [facility] for rehab and had been doing better - pt was seen in the ed - patient is sent from Dr. Calderon's office. She says that she broke her back a couple of months ago. She thinks she was seen at [facility]. She was admitted to a longterm for that after discharge. She said that she had been able to get around with a walker fairly well until the past week to week and a half. She said that she bent over to get in the lower portion of the refrigerator while sitting in a wheelchair and had severe pain in her lower back which has persisted ever since then. She locates the pain as mid lumbar to lower thoracic. Also for the past week she has pain in her left upper quadrant and left flank that goes all the way around the back to her spine. Pain is much worse with movement. With movement the pain will go down her left leg as well. No new numbness or weakness. She was seen in Dr. Calderon's office today. He reports that they performed a urine analysis and have prescribed an antibiotic and pain medication but we would like her to come to the emergency room to get CT scans and blood work for further evaluation. May discharge if no conditions requiring inpatient level of care found. 7:06 PM: Spoke with Dr. Womack, hospitalist at [facility]. He accepts the patient to a [facility] telemetry bed pending bed availability. Transfer center thinks a bed may be available tonight and they will call back after 9 PM. (Jeremy Batres) Medical Decision Narrative: Discussed findings with patient. She has no history of intravenous drug abuse or spinal surgery. She does have a history of bone cancer in her leg several years ago which she says was resected and they got it all . 8:20 PM: At shift change, I have discussed the patient with the oncoming physician, who will assume care of the patient at this time. I have discussed all clinical information including history, physical and diagnostic study results. Preliminary diagnoses based on information available at this point have been recorded by me. Awaiting contact from [facility] about bed availability. (Jeremy Batres) pt was admitted for treatment till bed available for transfer Hospital Course Hospital Course: pt was admitted and continued on abx and pain meds and remained stable and will be transferred to [facility] - Objective Vital signs: Temp Pulse Resp BP Pulse Ox 98.0 F 67 16 144/91 H 92 L 12/03/21 16:00 12/03/21 16:00 12/03/21 16:00 12/03/21 16:00 12/03/21 16:00 no acute distress - *Routine HEENT Exam Head: Present: normocephalic Eye: Present: EOMI, PERRL ENT: Present: mucous membranes dry - *Routine Neck Exam Absent: JVD - *Routine Respiratory Exam Present: CTA bilaterally - *Routine Cardiovascular Exam Present: RRR - *Routine Abdominal Exam Present: soft - *Routine Extremities Exam Absent: calf tenderness - Routine Back/Spine/Pelvis Exam Back/Spine: Present: paraspinal tenderness, vertebral tenderness. Absent: CVA tenderness - *Routine Skin Exam Present: intact - *Routine Neurological Exam Present: alert, CN II-XII intact - Routine Psychiatric Exam Present: normal affect Results Labs on day of discharge: Preliminary micro results at discharge 12/02/21 14:15 Urine Culture - Preliminary Urine,Clean Catch DS: Diagnosis - Discharge Diagnosis (1) Discitis Status: Acute (2) Vertebral fracture, pathological Status: Acute (3) Vertebral osteomyelitis Status: Acute (4) Anxiety Status: Acute (5) Hypothyroidism (acquired) Status: Acute (6) Hypertension Status: Chronic Discharge Plan - Patient Discharge Instructi
--- NOTE | 2021-12-03 22:10 | PC.NURSE ---
2210 report called to [place], [place] to [facility] RN unit [facility], pts daughter who is POA also notified of pt transfer acceptance and transfer tonight. Dr. Jennings is accepting physician.
--- NOTE | 2021-12-04 00:03 | PC.NURSE ---
0003 pt left via ambulance in satisfactory condition with personnel belongings accompanied by ambulance personnel, f/c to bsd with clear yellow urine emptied 1200cc, iv saline locked to left hand #[id number] patent. pt given dose of dilaudid for pain prior to transfer for comfort. pt in no acute distress.
--- NOTE | 2021-12-04 00:04 | PC.NURSE ---
PT WAS TRANSFERRED VIA STRETCHER PER [facility] TO DIFFERENT FACILITY @0005
== END 2021-12-04 00:03 | disposition short-term general hospital (02) | DRG 552 ==
LOC: ER 12-03 09:31 → 2ND 12-03 09:45
PROVIDERS: Admitting Provider Emergency Medicine; Emergency Provider Emergency Medicine; PCP Emergency Medicine; Visit Provider Emergency Medicine
DX: M46.44 Discitis, unspecified, thoracic region (principal); M84.48XA Pathological fracture, other site, initial encounter for fracture; M46.24 Osteomyelitis of vertebra, thoracic region; Z85.830 Personal history of malignant neoplasm of bone; F17.210 Nicotine dependence, cigarettes, uncomplicated; I10 Essential (primary) hypertension; Z86.73 Personal history of transient ischemic attack (TIA), and cerebral infarction without residual deficits; F41.9 Anxiety disorder, unspecified; F32.A Depression, unspecified; E03.9 Hypothyroidism, unspecified
CPT/HCPCS: 71045; 72128; 72131; 74177; 80053; 83605; 83690; 85025; 85651; 86140; 87040; 87086; 87088; 87186; 99285; C9803; J2405; J3370; Q9967; U0003; U0005

== ENCOUNTER → 2022-07-21 13:31 | Outpatient (CLI) | payer MEDICARE, SELFPAY ==
[2022-07-12 19:20] LABS: Amphetamine/Metha Screen,Urine Negative ng/ml (<1000); Barbiturates Screen,Urine Negative ng/ml (<200)
[2022-07-12 19:21] LABS: Benzodiazepines Screen,Urine Negative ng/ml (<200)
[2022-07-12 19:22] LABS: Cannabinoid Screen,Urine Negative ng/ml (<50); Cocaine Screen,Urine Negative ng/ml (<300)
[2022-07-12 19:23] LABS: Methadone Screen,Urine Negative ng/ml (<300); Opiate Screen,Urine Negative ng/ml (<300)
[2022-07-12 19:24] LABS: Phencyclidine Screen,Urine Negative ng/ml (<25)
[2022-07-21 13:39] LABS: Adenovirus F 40/41, stool Not Detected (NotDetected); Astrovirus Not Detected (NotDetected); Campylobacter Not Detected (NotDetected); Cryptosporidium Not Detected (NotDetected); Cyclospora Cayetanesis Not Detected (NotDetected); Entamoeba histolytica Not Detected (NotDetected); Enteroaggregative E coli Not Detected (NotDetected); Enteropathogenic E coli Not Detected (NotDetected); Enterotoxigenic E coli Not Detected (NotDetected); Giardia lamblia Not Detected (NotDetected); Norovirus Not Detected (NotDetected); Plesimonas Shigalloides, PCR Not Detected (NotDetected); Rotavirus A Not Detected (NotDetected); Salmonella, PCR Not Detected (NotDetected); Sapovirus Not Detected (NotDetected); Shiga-like toxin E coli Not Detected (NotDetected); Shigella Enterovasive E coli Not Detected (NotDetected); Vibrio Cholerae Not Detected (NotDetected); Vibrio, PCR Not Detected (NotDetected); Yersinia Entercolitica, PCR Not Detected (NotDetected)
[2022-07-21 16:26] LABS: Clostridium Difficile A/B, PCR Detected (NotDetected)
== END ==
PROVIDERS: PCP Emergency Medicine; Visit Provider Emergency Medicine
DX: M54.16 Radiculopathy, lumbar region (principal); R19.7 Diarrhea, unspecified; A04.72 Enterocolitis due to Clostridium difficile, not specified as recurrent; Z79.899 Other long term (current) drug therapy
CPT/HCPCS: 80305; 87506

== ENCOUNTER 2022-08-03 09:57 | Emergency (ER) | payer MEDICARE, SELFPAY ==
[2022-08-03 10:07] VITALS: BP 184/112; PULSE 91; RESP 22; TEMP 36.8; O2SAT 91; BMI 23.3
[2022-08-03 10:30] VITALS: BP 184/105; RESP 16
--- NOTE | 2022-08-03 10:52 | CT_ITS ---
FINAL REPORT TECHNIQUE: Axial CT images were performed from the lung apices through the upper abdomen. Coronal reformats were submitted. This study was performed with techniques to keep radiation doses as low as reasonably achievable (ALARA). Individualized dose reduction techniques using automated exposure control or adjustment of mA and/or kV according to the patient's size were employed. CLINICAL HISTORY: fall, injured ribs on the right side COMPARISON: none FINDINGS: There is no axillary adenopathy. There is no hilar or mediastinal mass or adenopathy. Heart size is normal. There is no pericardial or pleural effusion. Limited images of the upper abdomen demonstrate probable cyst in the left liver dome measuring 27 mm. Mild scarring is noted. There is no pneumothorax. There are postoperative changes of the thoracic spine. There are fractures of the right anterolateral 4th, 5th, and 6th ribs which are nondisplaced. IMPRESSION: Nondisplaced fractures of the right anterolateral 4th, 5th, and 6th ribs. Probable liver cyst as described. Reviewed, Interpreted and Dictated by Leo Guzman III, MD Transcribed by Debbie Finnegan Authenticated and . [facility]
--- NOTE | 2022-08-03 10:52 | HMH.EDGENADL ---
Discharge Plan Disposition Patient Disposition: Home, Self-Care Condition: Good Chief Complaint: Fall Prescriptions Prescriptions: No Action losartan 100 mg tablet 100 mg PO DAILY oxybutynin chloride 5 mg tablet 5 mg PO BID ferrous sulfate 325 mg (65 mg iron) tablet 325 mg PO DAILY clonazepam [Klonopin] 0.5 mg tablet 0.5 mg PO BID Qty: 60 1RF gabapentin 600 mg tablet 600 mg PO TID Qty: 90 1RF tramadol 50 mg tablet 50 mg PO TID Qty: 90 0RF oxycodone-acetaminophen [Percocet] 10-325 mg tablet 1 tab PO QID Qty: 120 0RF vitamin [id number] B1 1,000-100 mg/mL solution 1 ml IM . monthly tizanidine 4 mg tablet See Rx Instructions .ROUTE .COMPLEX Qty: 90 3RF Dose Instruction: TAKE 1 TABLET BY MOUTH AT BEDTIME Rx Instructions: TAKE 1 TABLET BY MOUTH AT BEDTIME omeprazole 40 mg capsule,delayed release(DR/EC) 40 mg PO DAILY Qty: 90 2RF amlodipine 5 mg tablet See Rx Instructions .ROUTE .COMPLEX Qty: 90 0RF Dose Instruction: TAKE 1 TABLET BY MOUTH DAILY Rx Instructions: TAKE 1 TABLET BY MOUTH DAILY fluoxetine 40 mg capsule See Rx Instructions .ROUTE .COMPLEX Qty: 90 3RF Dose Instruction: TAKE 1 CAPSULE BY MOUTH EVERY DAY Rx Instructions: TAKE 1 CAPSULE BY MOUTH EVERY DAY divalproex 500 mg tablet,delayed release (DR/EC) See Rx Instructions .ROUTE .COMPLEX Qty: 180 0RF Dose Instruction: TAKE 1 TABLET BY MOUTH TWICE A DAY Rx Instructions: TAKE 1 TABLET BY MOUTH TWICE A DAY levothyroxine 50 mcg tablet See Rx Instructions .ROUTE .COMPLEX Qty: 90 0RF Dose Instruction: TAKE 1 TABLET BY MOUTH EVERY DAY Rx Instructions: TAKE 1 TABLET BY MOUTH EVERY DAY metronidazole 500 mg tablet 500 mg PO TID 10 Days Qty: 30 0RF Referrals Follow up/Referrals: Eris Calderon MD [Primary Care Provider] - See instructions Activity Restrictions/Add. Instructions Additional Instructions/Restrictions: Continue taking your pain medication as prescribed. Additional instructions for RIB INJURIES: See your physician as soon as possible for further evaluation. Hold a pillow against your injured ribs to help with pain when coughing or sneezing. Sleep with several pillows to help support you in the most comfortable position. Take deep breaths frequently. Use incentive spirometer 4-5 times a day. Return immediately if shortness of breath, intolerable pain, coughing of blood, abdominal pain or vomiting. Clinical Impressions Clinical Impression: Multiple fractures of ribs Instructions Patient Instructions: DI for Rib Fracture, How to Prevent Falls Discharge ED Provider: Jeremy Batres General Adult HPI General Chief complaint: Fall Stated complaint: Rib pain from fall Time Seen by Provider: 08/03/22 10:45 Mode of Arrival: EMS Source of Information: Patient and Relative Limitations: No Limitations Description of Symptoms (Recalled from ER Triage Doc. by RN): Pt reports falling at home this morning, striking right lateral side on bedside commode; pt reports urge incontinence and was getting up to void in a hurry when she tripped; denies LOC or other c/o except right lateral chest wall pain, exacerbated w deep inspiration, TTPP 4th-5th, NAD, PMHx COPD w prn O2 History of Present Illness HPI narrative: Patient states that she got up at 4 AM to use her bedside commode and lost her balance, fell hitting her right lateral chest on the arm of a chair. Complains of pain in her right lateral ribs increasing with breathing. She has COPD, chronically short of breath. Uses oxygen as needed. States that when she was released from a senior care in August they told her to wear the oxygen all the time, but she says she does not need it all the time and just wears it as needed. Denies any other injuries, no head or neck injury. No abdominal pain. No vomiting. No injury to upper or lower extremiti
[2022-08-03 11:00] VITALS: BP 188/103; PULSE 60; RESP 16; O2SAT 92
[2022-08-03 12:00] VITALS: BP 158/102; PULSE 72; RESP 18; O2SAT 94
[2022-08-03 12:30] VITALS: BP 159/84; PULSE 84; RESP 16; O2SAT 92
[2022-08-03 13:09] VITALS: BP 147/98; PULSE 79; RESP 20; TEMP 36.7; O2SAT 94
== END 2022-08-03 13:23 | disposition home or self-care (01) ==
PROVIDERS: Emergency Provider Emergency Medicine; PCP Emergency Medicine
DX: S22.41XA Multiple fractures of ribs, right side, initial encounter for closed fracture (principal); J44.9 Chronic obstructive pulmonary disease, unspecified; F17.210 Nicotine dependence, cigarettes, uncomplicated; W19.XXXA Unspecified fall, initial encounter
CPT/HCPCS: 71250; 99284

== ENCOUNTER → 2022-09-05 15:50 | Outpatient (CLI) | payer MEDICARE, SELFPAY ==
--- NOTE | 2022-09-05 15:54 | XR_ITS ---
FINAL REPORT CLINICAL HISTORY: Ankle Pain FINDINGS: RIGHT ANKLE Three views of the right ankle were obtained. There is at least 14 mm of lateral subluxation of the talus and foot in relation to the distal tibia. There are extensive postoperative changes with multiple screws present. There is fusion of the tibiotalar and probably the talar navicular joints. There is chronic flattening of the talus. There are moderate and severe degenerative changes. IMPRESSION: Degenerative and postoperative changes as described. Reviewed, Interpreted and Dictated by Leo Guzman III, MD Transcribed by Diane Alfredo Authenticated and [facility]
--- NOTE | 2022-09-05 15:54 | XR_ITS ---
FINAL REPORT CLINICAL HISTORY: Foot Pain FINDINGS: RIGHT FOOT Three views of the right foot were obtained. There is chronic deformity of the ankle and rear foot with multiple screws present. There is fusion of the ankle. There is chronic flattening of the talus and anterior calcaneus. There is pes planus deformity. There is mild and moderate degenerative changes. There is osteopenia. IMPRESSION: Postoperative and degenerative changes as described. Reviewed, Interpreted and Dictated by Leo Guzman III, MD Transcribed by Diane Alfredo Authenticated and [facility]
--- NOTE | 2022-09-05 15:54 | XR_ITS ---
FINAL REPORT CLINICAL HISTORY: Foot Pain FINDINGS: LEFT FOOT Three views of the left foot demonstrate no acute fracture or dislocation. There are mild degenerative changes. The soft tissues are unremarkable. IMPRESSION: Mild degenerative change with no acute bony abnormality. Reviewed, Interpreted and Dictated by Leo Guzman III, MD Transcribed by Diane Alfredo Authenticated and [facility]
--- NOTE | 2022-09-05 15:54 | XR_ITS ---
FINAL REPORT CLINICAL HISTORY: Ankle Pain FINDINGS: LEFT ANKLE Three views of the left ankle were obtained. There is no acute fracture or dislocation. The joint spaces and mortise are intact. There is no soft tissue abnormality. IMPRESSION: No acute bony abnormality. Reviewed, Interpreted and Dictated by Leo Guzman III, MD Transcribed by Diane Alfredo Authenticated and [facility]
== END ==
LOC: RAD 15:51
PROVIDERS: PCP Emergency Medicine; Visit Provider Nurse Practitioner Family
DX: M25.571 Pain in right ankle and joints of right foot; M25.572 Pain in left ankle and joints of left foot; M79.671 Pain in right foot; M79.672 Pain in left foot
CPT/HCPCS: 73610; 73630

== ENCOUNTER → 2022-10-24 23:21 | Outpatient (CLI) | payer MEDICARE, SELFPAY ==
[2022-10-24 20:11] LABS: Amphetamine/Metha Screen,Urine Negative ng/ml (<1000)
[2022-10-24 20:12] LABS: Barbiturates Screen,Urine Negative ng/ml (<200)
[2022-10-24 20:13] LABS: Benzodiazepines Screen,Urine Negative ng/ml (<200)
[2022-10-24 20:14] LABS: Cannabinoid Screen,Urine Negative ng/ml (<50)
[2022-10-24 20:15] LABS: Cocaine Screen,Urine Negative ng/ml (<300); Methadone Screen,Urine Negative ng/ml (<300)
[2022-10-24 20:16] LABS: Opiate Screen,Urine Negative ng/ml (<300)
[2022-10-24 20:17] LABS: Phencyclidine Screen,Urine Negative ng/ml (<25)
== END ==
PROVIDERS: PCP Emergency Medicine; Visit Provider Emergency Medicine
DX: Z79.899 Other long term (current) drug therapy (principal)
CPT/HCPCS: 80305

== ENCOUNTER → 2023-02-19 23:18 | Outpatient (CLI) | payer MEDICARE, SELFPAY ==
[2023-02-19 18:44] LABS: Alanine Aminotransferase 29 U/L (12-78); Albumin Level 4.5 g/dl (3.5-5.0); Albumin/Globulin Ratio 1.6 (1.1-1.8); Alkaline Phosphatase 119 U/L (38-126); Anion Gap 13.8 mEq/L (5-15); Aspartate Amino Transferase 52 U/L (14-36); Bilirubin,Total 0.8 mg/dl (0.2-1.3); Blood Urea Nitrogen 16 mg/dl (7-17); Calcium 9.5 mg/dl (8.4-10.2); Carbon Dioxide 23 mmol/L (22.0-30.0); Chloride 98 mmol/L (98-107); Cholesterol 191 mg/dl (140-200); Estimated Glomerular Filt Rate 83 ml/min (>60); GFR (African American) 101 ML/MIN (>60); Globulin 2.9 g/dL (1.3-3.2); Glucose 91 mg/dl (74-100); Potassium 4.8 mmoL/L (3.5-5.1); Sodium 130 mmol/L (136-145); Total Protein,Serum 7.4 g/dl (6.3-8.2); Triglycerides 76 mg/dl (30-150); VLDL Cholesterol 15 mg/dL (0-40)
[2023-02-19 18:46] LABS: Basophils % 0.4 % (0.1-2.0); Eosinophils # 0.1 K/mm3 (0.0-0.4); Eosinophils % 0.9 % (0.1-12.0); Hematocrit 36.7 % (37.0-47.0); Hemoglobin 13.3 g/dL (12.2-16.2); Lymphocytes # 3.3 K/mm3 (0.7-4.5); Lymphocytes % 37.9 % (10-50); Mean Corpuscular HGB Conc 36.3 g/dL (31.8-35.4); Mean Corpuscular Hemoglobin 37.6 pg (27.0-31.2); Mean Corpuscular Volume 103.5 fl (81-99); Mean Platelet Volume 9.4 fl (7.4-10.4); Monocytes # 0.6 K/mm3 (0.1-1.0); Monocytes % 6.4 % (1.7-9.3); Neutrophils # 4.7 K/mm3 (1.8-7.8); Neutrophils % 54.4 % (37.0-80.0); Platelet Count 420 K/mm3 (142-424); Red Blood Count 3.55 M/mm3 (4.20-5.40); Red Cell Distribution Width 16.3 % (11.5-17.5); White Blood Count 8.7 K/mm3 (4.8-10.8)
[2023-02-19 18:54] LABS: Chol/HDL Ratio 1.6 (1-3.5); HDL Cholesterol 116 mg/dl (40-60)
[2023-02-19 18:55] LABS: Direct LDL Cholesterol 62.22 mg/dL (100-129)
[2023-02-19 19:01] LABS: T4 (Thyroxine) 7.5 ug/dl (5.53-11.0)
[2023-02-19 19:15] LABS: Thyroid Stimulating Hormone 0.56 uIU/mL (0.465-4.68)
[2023-02-19 19:34] LABS: Vitamin B12 881 pg/mL (239-931)
[2023-02-19 21:24] LABS: Amphetamine/Metha Screen,Urine Negative ng/ml (<1000); Barbiturates Screen,Urine Negative ng/ml (<200)
[2023-02-19 21:29] LABS: Benzodiazepines Screen,Urine Negative ng/ml (<200); Cannabinoid Screen,Urine Negative ng/ml (<50)
[2023-02-19 21:30] LABS: Cocaine Screen,Urine Negative ng/ml (<300)
[2023-02-19 21:31] LABS: Methadone Screen,Urine Negative ng/ml (<300); Opiate Screen,Urine Negative ng/ml (<300)
[2023-02-19 21:32] LABS: Phencyclidine Screen,Urine Negative ng/ml (<25)
== END ==
PROVIDERS: PCP Emergency Medicine; Visit Provider Emergency Medicine
DX: E55.9 Vitamin D deficiency, unspecified (principal); E53.8 Deficiency of other specified B group vitamins; R41.82 Altered mental status, unspecified; Z79.899 Other long term (current) drug therapy; I10 Essential (primary) hypertension; E03.9 Hypothyroidism, unspecified
CPT/HCPCS: 80053; 80061; 80305; 82306; 82607; 84436; 84443; 85025

== ENCOUNTER → 2023-06-18 13:22 | Outpatient (CLI) | payer MEDICARE, SELFPAY ==
[2023-06-18 19:38] LABS: Benzodiazepines Screen,Urine Negative ng/ml (<200)
[2023-06-18 19:39] LABS: Amphetamine/Metha Screen,Urine Negative ng/ml (<1000); Barbiturates Screen,Urine Negative ng/ml (<200)
[2023-06-18 19:40] LABS: Methadone Screen,Urine Negative ng/ml (<300)
[2023-06-18 19:41] LABS: Cannabinoid Screen,Urine Negative ng/ml (<50); Cocaine Screen,Urine Negative ng/ml (<300)
[2023-06-18 19:42] LABS: Opiate Screen,Urine Negative ng/ml (<300)
[2023-06-18 19:43] LABS: Phencyclidine Screen,Urine Negative ng/ml (<25)
[2023-06-23 18:12] LABS: Alprazolam Negative (Cutoff=100); Benzodiazepines Positive ng/mL (Cutoff=100); Clonazepam Positive (.); Clonazepam Confirm 211 ng/mL (Cutoff=100); Flurazepam Negative (Cutoff=100); Lorazepam Negative (Cutoff=100); Midazolam Negative (Cutoff=100); Opiates Negative ng/mL (Cutoff=100); Temazepam Negative (Cutoff=100); Triazolam Negative (Cutoff=100)
[2023-06-26 15:29] LABS: Pregabalin, Urine 43.1
== END ==
LOC: LAB.DROPOF 06-27 13:23
PROVIDERS: PCP Family Medicine; Visit Provider Family Medicine
DX: R41.82 Altered mental status, unspecified (principal); Z79.899 Other long term (current) drug therapy
CPT/HCPCS: 80305; 80346; 80361; 80366; G0480

== ENCOUNTER → 2023-06-19 13:04 | Outpatient (CLI) | payer MEDICARE, SELFPAY | PROVIDERS: PCP Family Medicine; Visit Provider Family Medicine | DX: Z79.899 Other long term (current) drug therapy (principal); R41.82 Altered mental status, unspecified | CPT/HCPCS: 80346; 80361; 80366; G0480 ==

== ENCOUNTER → 2023-06-27 23:17 | Outpatient (CLI) | payer MEDICARE, SELFPAY ==
[2023-06-27 20:29] LABS: Amphetamine/Metha Screen,Urine Negative ng/ml (<1000)
[2023-06-27 20:30] LABS: Barbiturates Screen,Urine Negative ng/ml (<200)
[2023-06-27 20:31] LABS: Benzodiazepines Screen,Urine Negative ng/ml (<200); Cannabinoid Screen,Urine Negative ng/ml (<50)
[2023-06-27 20:32] LABS: Cocaine Screen,Urine Positive ng/ml (<300); Methadone Screen,Urine Negative ng/ml (<300)
[2023-06-27 20:53] LABS: Opiate Screen,Urine Negative ng/ml (<300)
[2023-06-27 20:54] LABS: Phencyclidine Screen,Urine Negative ng/ml (<25)
[2023-07-09 18:07] LABS: Alprazolam Negative (Cutoff=100); Benzodiazepines Negative ng/mL (Cutoff=100); Clonazepam Negative (Cutoff=100); Flurazepam Negative (Cutoff=100); Lorazepam Negative (Cutoff=100); Midazolam Negative (Cutoff=100); Opiates Negative ng/mL (Cutoff=100); Temazepam Negative (Cutoff=100); Triazolam Negative (Cutoff=100)
[2023-07-11 11:13] LABS: Benzoylecgonine (GC/MS) 3200 ng/mL (Cutoff=150); Cocaine + Metabolite Positive (.)
[2023-07-18 10:33] LABS: Pregabalin, Urine 49.9
== END ==
LOC: LAB.DROPOF 23:17
PROVIDERS: PCP Family Medicine; Visit Provider Family Medicine
DX: R41.82 Altered mental status, unspecified (principal); Z79.899 Other long term (current) drug therapy
CPT/HCPCS: 80307; 80346; 80353; 80361; 80366; G0480

== ENCOUNTER → 2023-06-28 08:48 | Outpatient (CLI) | payer MEDICARE, SELFPAY | LOC: LAB.DROPOF 07-04 08:48 | PROVIDERS: PCP Family Medicine; Visit Provider Family Medicine | DX: Z79.899 Other long term (current) drug therapy (principal) | CPT/HCPCS: 80353 ==

== ENCOUNTER → 2023-07-26 10:52 | Outpatient (POV) | payer MEDICARE, SELFPAY ==
[2023-07-26 11:33] VITALS: BP 188/95; PULSE 79; RESP 20; O2SAT 96; BMI 23.3
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
== END ==
LOC: SC.PAIN 10:53
PROVIDERS: PCP Internal Medicine; Visit Provider Nurse Practitioner Family
DX: G89.4 Chronic pain syndrome (principal); M51.34 Other intervertebral disc degeneration, thoracic region; M51.16 Intervertebral disc disorders with radiculopathy, lumbar region
CPT/HCPCS: 99202; G0463

== ENCOUNTER 2023-08-06 11:06 | Outpatient (CLI) | payer MEDICARE, SELFPAY ==
[2023-08-06 11:39] LABS: Basophils % 0.6 % (0.1-2.0); Eosinophils # 0.2 K/mm3 (0.0-0.4); Eosinophils % 2.4 % (0.1-12.0); Hematocrit 37.9 % (37.0-47.0); Hemoglobin 12.6 g/dL (12.2-16.2); Lymphocytes # 1.9 K/mm3 (0.7-4.5); Lymphocytes % 27.5 % (10-50); Mean Corpuscular HGB Conc 33.2 g/dL (31.8-35.4); Mean Corpuscular Volume 105.3 fl (81-99); Monocytes # 0.6 K/mm3 (0.1-1.0); Monocytes % 8.6 % (1.7-9.3); Neutrophils # 4.1 K/mm3 (1.8-7.8); Neutrophils % 60.9 % (37.0-80.0); Platelet Count 452 K/mm3 (142-424); Red Cell Distribution Width 13.8 % (11.5-17.5); White Blood Count 6.8 K/mm3 (4.8-10.8)
[2023-08-06 12:00] LABS: Alanine Aminotransferase 24 U/L (12-78); Albumin Level 4.5 g/dl (3.5-5.0); Albumin/Globulin Ratio 1.9 (1.1-1.8); Alkaline Phosphatase 68 U/L (38-126); Anion Gap 9.5 mEq/L (5-15); Aspartate Amino Transferase 36 U/L (14-36); Bilirubin,Total 0.3 mg/dl (0.2-1.3); Blood Urea Nitrogen 25 mg/dl (7-17); Calcium 10.2 mg/dl (8.4-10.2); Carbon Dioxide 30 mmol/L (22.0-30.0); Chloride 95 mmol/L (98-107); Estimated Glomerular Filt Rate 55 ml/min (>60); GFR (African American) 67 ML/MIN (>60); Globulin 2.4 g/dL (1.3-3.2); Glucose 115 mg/dl (74-100); Potassium 3.5 mmoL/L (3.5-5.1); Sodium 131 mmol/L (136-145); Total Protein,Serum 6.9 g/dl (6.3-8.2)
[2023-08-06 12:06] LABS: C-Reactive Protein 11.2 mg/L (0-4)
[2023-08-06 12:09] LABS: Erythrocyte Sedimentation Rate 16 mm/hr (0-30)
[2023-08-22 09:13] LABS: 1,25 Dihydroxy Vitamin D 18 pg/mL (.); 1,25-Dihydroxy, Vitamin D-2 <10 pg/mL (.); 1,25-Dihydroxy, Vitamin D-3 17 pg/mL (.)
== END 2023-08-06 23:59 ==
LOC: LAB 11:07
PROVIDERS: PCP Internal Medicine; Visit Provider Podiatrist
DX: G89.29 Other chronic pain (principal); M21.41 Flat foot [pes planus] (acquired), right foot; M21.42 Flat foot [pes planus] (acquired), left foot; M79.671 Pain in right foot; M79.672 Pain in left foot; R73.03 Prediabetes; Z79.899 Other long term (current) drug therapy
CPT/HCPCS: 36415; 80053; 82652; 83036; 85025; 85651; 86140